=== PATIENT | female | born 1975 | race Two or more races ===

== ENCOUNTER 2020-05-06 10:55 | Outpatient (REF) | payer BC, SELFPAY ==
[2020-05-07 16:17] LABS: H Pylori Breath Test NOT DETECTED (NOT DETECTED)
== END 2020-05-06 10:56 | disposition home or self-care (01) ==
LOC: CF 10:55
PROVIDERS: PCP Internal Medicine; Visit Provider Physician Assistant
DX: R10.13 Epigastric pain (principal)
CPT/HCPCS: 83013

== ENCOUNTER 2021-08-08 08:48 | Outpatient (REF) | payer BC, SELFPAY ==
[2021-08-08 09:06] LABS: MANUAL DIFF FLAG NO
[2021-08-08 09:32] LABS: Basophils Percent Auto 0.5 % (0-2); Eosinophils Absolute Auto 0.1 X10*3/uL (0.0-0.4); Eosinophils Percent Auto 2.3 % (0-4); Hematocrit 43.5 % (37.0-47.0); Hemoglobin 14.4 g/dl (12.0-16.0); Imm Gran Abs Auto 0.02 X10*3/uL (0.00-0.03); Imm Gran Pct Auto 0.5 % (0.0-0.4); Lymphocytes Absolute Auto 1.2 X10*3/uL (1.2-4.9); Lymphocytes Percent Auto 29.7 % (20-40); Mean Corpuscular HGB Conc 33.1 g/dl (31.0-35.0); Mean Corpuscular Volume 87.5 fL (80.0-98.0); Mean Platelet Volume 9.6 fL (9.4-12.3); Monocytes Absolute Auto 0.4 X10*3/uL (0.1-1.2); Monocytes Percent Auto 10.7 % (2-11); Neutrophils Absolute Auto 2.2 x10*3/uL (2.0-8.3); Neutrophils Percent Auto 56.3 % (45-73); Platelet Count 208 X10*3/uL (160-400); Red Blood Count 4.97 X10*6/uL (4.20-5.50); Red Cell Distribution Width 12.6 % (11.0-16.0); White Blood Count 3.9 X10*3/uL (4.8-10.8)
[2021-08-08 10:06] LABS: Alanine Aminotransferase 31 U/L (0-31); Albumin Level 3.9 g/dL (3.5-5.0); Alkaline Phosphatase 89 U/L (39-117); Anion Gap 10 (12-20); Aspartate Amino Transferase 27 U/L (5-31); Bilirubin Total 0.9 mg/dL (0.0-1.0); Blood Urea Nitrogen 11 mg/dL (9-16); Calcium 9.8 mg/dL (8.4-10.2); Carbon Dioxide 27 mmol/L (22-29); Chloride 107 mmol/L (96-108); Cholesterol 178 mg/dL; Estimated Glomerular Filt Rate > 60; Glucose Fasting 103 mg/dL (60-99); HDL Cholesterol 48 mg/dL; LDL Cholesterol Calculated 118 mg/dl; Potassium 4.5 mmol/L (3.3-5.1); Sodium 139 mmol/L (135-145); Total Protein 7.2 g/dL (6.5-8.0); Triglycerides 61 mg/dL
[2021-08-08 10:15] LABS: Estimated Average Glucose 114 mg/dL; Hemoglobin A1C 137.3751 umol/L; Hemoglobin A1c % 5.6 %
[2021-08-08 10:27] LABS: Microalbum/Creatinine Ratio Ur 9.1 ug/mg cr
[2021-08-08 10:31] LABS: Thyroid Stimulating Hormone 0.81 uIU/mL (0.32-4.0)
== END 2021-08-08 08:49 | disposition home or self-care (01) ==
LOC: HO.LAB 08:48
PROVIDERS: PCP Internal Medicine; Visit Provider Internal Medicine
DX: Z00.00 Encounter for general adult medical examination without abnormal findings (principal); Z13.9 Encounter for screening, unspecified; Z13.0 Encounter for screening for diseases of the blood and blood-forming organs and certain disorders involving the immune mechanism; E11.69 Type 2 diabetes mellitus with other specified complication; E66.01 Morbid (severe) obesity due to excess calories
CPT/HCPCS: 36415; 80053; 80061; 82043; 83036; 84443; 85025

== ENCOUNTER → 2021-10-14 07:44 | Outpatient (REF) | payer BC, SELFPAY ==
--- NOTE | 2021-10-14 07:50 | CA_ITS ---
Transthoracic Echocardiogram Amended Patient (Last, First, Middle): Rocio Wilson E Gender: Female Date of : 1975 Age: 46 Procedure Date: 10/14/2021 Procedure Type: Transthoracic Echocardiogram Location: OP Height: 154.94 cm Weight: 85.73 kg BSA: 1.84 m2 Heart Rate: 79 bpm BP: 122 / 70 mmHg Brand Lead: ETHEL Referring MD: Arnaldo Merlos MD Commercial Stripper: Arnaldo Merlos MD Symptoms: PVCS Study Quality: Adequate ECG Rhythm: Sinus Conclusions: - 1. Normal LV systolic and diastolic function 2. Small membranous VSD 3. Normal cardiac valvular Doppler 4. Normal RV systolic pressure 5. No gross pericardial effusion Findings Left Ventricle Normal left ventricular size, thickness, and systolic function. The visually estimated ejection fraction is between 60-65%. Diastolic function is normal for age. There is evidence of a small membranous ventricular septal defect with left to right shunting. Peak GLS is -19.9%, within normal limits Right Ventricle Normal right ventricular cavity size and systolic function. Atria Both atria are normal in size. There is lipomatous hypertrophy of the interatrial septum. There is no evidence of interatrial shunt. Aortic Valve Normal aortic valve structure and function. There is no aortic valve stenosis. There is no aortic valve regurgitation. Mitral Valve Normal mitral valve structure and function. There is trace mitral valve regurgitation. There is no mitral valve stenosis. Pulmonic Valve The pulmonic valve is likely normal. There is trace to mild pulmonic valve regurgitation. Tricuspid Valve Normal tricuspid valve structure. There is mild tricuspid valve regurgitation. The right ventricular systolic pressure is normal. The right ventricular systolic pressure is 24 mmHg. Normal right atrial pressure. There is no evidence of pulmonary hypertension. Great Vessels All visible segments of the aorta are normal in size. The pulmonary artery was not well visualized. Venous The inferior vena cava is normal in size and collapses greater than 50% with inspiration. Pericardium/Pleural There is no evidence of pericardial effusion. Prior Study Comparison No significant change compared to prior study dated: 10/11/2019. RV systolic pressure are normal on this study Measurements 2D Linear Measurements IVSd: 0.89 0.6-0.9/0.6-1.0 cm LVIDd: 4.44 3.9-5.3/4.2-5.9 cm LVIDd Index: 2.41 2.4-3.2/2.2-3.1 cm/m2 LVIDs: 3.08 2.0-3.6 cm LVPWd: 0.66 0.7-1.1 cm Ao Root: 2.70 2.1-3.5 cm LA Diam: 3.90 2.7-3.8/3.0-4.0 cm LAIDs Index: 2.12 1.5-2.3 cm/m2 LV Mass: 132.49 67-162/88-224 g LV Mass Index: 72.00 43-95/49-115 g/m2 LVOT Diam: 2.10 3.0+(-)1.3 cm 2D Volumes LA Vol: 30.80 2D Systolic Function EF 4C: 57.40 >55% EF 2C: 62.30 >55% EF BiP: 60.90 >55% Mitral Valve MV Pk E: 0.91 MV PK A: 0.64 MV Decel Time: 146.00 E/A: 1.40 E'Lateral: 10.80 E'Medial: 11.10 E/E' Med: 8.20 E/E' Lat: 8.40 PHT: 43.00 MVA PHT: 5.12 Decel Cherry: 6.20 Aortic Valve AoV Pk Fox: 1.17 AoV Mn Fox: 0.84 AoV VTI: 0.24 AoV Pk Grad: 5.00 Aov Mn Grad: 3.00 ESTRELLITA Cont.VTI: 2.83 LVOT LVOT Pk Fox: 0.88 LVOT Mn Fox: 0.65 LVOT VTI: 0.20 LVOT Pk Grad: 3.00 LVOT Mn Grad: 2.00 LVOT Diam: 2.10 LVOT Area: 3.46 Diastolic Function MV Pk E: 0.91 MV Pk A: 0.64 E/A: 1.40 E'Medial: 11.10 E/E' Med: 8.20 E' Laterial: 10.80 E/E' Lat: 8.40 Right Ventricle TAPSE (mm): 15.30 TVS' Fox: 10.40 Tricuspid Valve TR Pk Fox: 2.29 TR Pk Grad: 21.00 RA Press: 3.00 RVSP: 24.00 Great Vessels Aorta Ao Root-2D: 2.70 2.0-3.7 cm Sinus of Valsalva: 2.70 2.0-3.5 cm Ao Asc: 3.10 2.1-3.4 cm Ao Arch: 2.60 Ao Desc: 2.90 Pulmonary Veins Pulm Vein S/D 1.70 Pulmonary Valve PV Pk Fox: 1.21 Peak PV Grad: 6.00 Updated in Other Vendor System with Status of Final Arnaldo Merlos MD electronically signed on 10/14/2021 10:37:36 AM with status of Final
== END ==
LOC: HO.CARD 07:44
PROVIDERS: PCP Internal Medicine; Visit Provider Internal Medicine Cardiovascular Disease
DX: Q21.0 Ventricular septal defect (principal)
CPT/HCPCS: 93306; 93356

== ENCOUNTER → 2021-11-03 08:48 | Outpatient (BNVA) | payer BC, SELFPAY | PROVIDERS: PCP Internal Medicine; Referring Provider Internal Medicine; Visit Provider Internal Medicine Cardiovascular Disease | DX: Q21.0 Ventricular septal defect (principal) | CPT/HCPCS: 93005 ==

== ENCOUNTER 2022-03-24 08:27 | Outpatient (REF) | payer BC, SELFPAY ==
--- NOTE | ~2022-03-24 | MM_ITS ---
EXAMINATION: MM SCREENING DIGITAL BREAST TOMOSYNTHESIS, BILATERAL CLINICAL INFORMATION: Screening. Asymptomatic. The lifetime risk of breast cancer based on the Tyrer-Cuzick Model is 8%. COMPARISON: Mammography: 12/25/2019, 12/18/2018, 11/02/2017 TECHNIQUE: Digital breast tomosynthesis is performed in both the craniocaudal and mediolateral oblique views along with computer-aided detection (CAD). Synthesized 2D images are generated from the tomosynthesis. FINDINGS: The breasts are heterogeneously dense, which may obscure small masses (ACR BI-RADS breast composition Category c). There are scattered bilateral asymmetries similar to prior studies. No developing density or architectural abnormality. Parenchymal pattern is similar to prior exam. Right breast has biopsy clip marker posterior 12:30 o'clock. There are scattered bilateral punctate and small coarse calcifications again seen. No significant changes. MM/MM tomosynthesis screening BI IMPRESSION: No mammographic evidence of malignancy. ASSESSMENT: BI-RADS 2: Benign RECOMMENDATION: Routine annual mammography screening. This patient's information was entered into a reminder system with a target due date for their next mammogram.
== END 2022-03-24 08:28 | disposition home or self-care (01) ==
LOC: HO.MAMMO 08:27
PROVIDERS: PCP Internal Medicine; Visit Provider Obstetrics & Gynecology
DX: Z12.31 Encounter for screening mammogram for malignant neoplasm of breast (principal)
CPT/HCPCS: 77063; 77067

== ENCOUNTER 2022-06-30 11:44 | Outpatient (REF) | payer BC, SELFPAY ==
--- NOTE | ~2022-06-30 | XR_ITS ---
EXAMINATION: XR CHEST CLINICAL INFORMATION: Cough. COMPARISON: None available. TECHNIQUE: 2 views of the chest were obtained. FINDINGS: The lungs are well-expanded and clear. The heart size and pulmonary vascularity is normal. No there is mild spondylosis dorsal spine. No aggressive lytic or sclerotic process seen. XR/XR chest 2V IMPRESSION: Unremarkable chest exam.
== END 2022-06-30 11:45 | disposition home or self-care (01) ==
LOC: HO.HMGCX 11:44
PROVIDERS: PCP Internal Medicine; Visit Provider Nurse Practitioner Family
DX: R05.9 Cough, unspecified (principal)
CPT/HCPCS: 71046

== ENCOUNTER 2023-01-24 11:07 | Outpatient (AMB) | payer BC, SELFPAY ==
[2023-01-24 12:28] VITALS: BP 130/80; PULSE 81; TEMP 36.6; O2SAT 97; BMI 37.8
--- NOTE | 2023-01-24 12:28 | AM.OFFWIN_ITS ---
Intake Vital Signs 01/24/23 12:28 Height 5 ft 1 in Weight 90.718 kg BMI 37.8 BP 130/80 Blood Pressure Location Lt brachial Position Sitting Pulse 81 Pulse Source Pulse Oximeter Temp 97.8 F Temp Source Temporal Artery Scan Pulse Oximetry (%) 97 Intake Visit Reasons: Ep, Sinus congestion ([phone]) Intake Note: pt is here for c/o sinus congestion Patient Tobacco Use Status: Former Tobacco user Allergies No Known Allergies Allergy (Verified 01/24/23 12:29) HPI Ep, Sinus congestion ([phone]) HPI Details Patient presents with 9 days of worsening congestion sinus pain headache. She has been taking cgfy-vzn-dcatifz cold remedies hoping he would self limit however she is feeling worse. No measured fever, mild cough, sore throat mild. Increasing sinus pressure and pain and ear congestion. Denies vision changes or balance/coordination issues. FORMERLY [facility] Medical History Epigastric pain Surgical History History of esophagogastroduodenoscopy (EGD) History of partial hysterectomy Hx of colonoscopy Family History Father HTN (hypertension) Epileptic Social History Housing: Apartment Alcohol intake: current Alcohol intake frequency: a few times a month Alcohol type: wine Patient Tobacco Use Status: Former Tobacco user e-Cigarette/Vaping Use: Never Used Second Hand Smoke Exposure: No service: No Current occupational status: employed Cognitive needs: No Hearing needs: No Vision needs: Yes Review of Systems Const Reports as per HPI and Reports no additional complaints Eyes Reports no additional complaints ENT Reports no additional complaints and Reports as per HPI Card Reports as per HPI and Reports no additional complaints Resp Reports as per HPI and Reports no additional complaints Neuro Reports no additional complaints and Reports as per HPI Physical Exam Vital Signs: Last Vital Signs Temp 97.8 F 01/24/23 12:28 Pulse 81 01/24/23 12:28 BP 130/80 01/24/23 12:28 Pulse Ox 97 01/24/23 12:28 BMI result Body Mass Index 37.8 Const General: cooperative, comfortable and no acute distress Orientation/consciousness: patient oriented x3 HEENT Ears: external ears normal, TM's normal bilaterally and EAC's normal General nose exam: Abnormal external nose present (General edema), Abnormal mucous membranes and turbinates present erythematous and Nasal discharge present mucoid Neck Neck: Yes no lymphadenopathy Resp Effort & Inspection: normal respiratory effort Auscultation: clear to auscultation bilaterally Cardio Rate: regular rate Rhythm: regular rhythm Heart sounds: S1 normal heart sound present and S2 normal heart sound present Neuro General: patient oriented x3 Extrem General: Yes no pedal edema Assessment & Plan Assessment & Plan (1) Sinusitis: Code(s): J32.9 - Chronic sinusitis, unspecified Qualifiers: Sinusitis location: frontal Chronicity: acute Recurrence: non- recurrent Qualified Code(s): J01.10 - Acute frontal sinusitis, unspecified Plan: Will treat patient with a course of Augmentin. She can continue OTC symptomatic treatment. Return to clinic if symptoms do not improve over the next 3-5 days. Medications: New amoxicillin-pot clavulanate 875-125 mg 1 tab PO Q12H 20 tabs 0RF 10 days Coding Level of Care Code Est Pt Level 3 (89806) Diagnoses Acute non-recurrent frontal sinusitis J01.10 Sinusitis location: frontal Chronicity: acute Recurrence: non-recurrent
== END 2023-01-24 13:05 | disposition home or self-care (01) ==
PROVIDERS: PCP Internal Medicine; Visit Provider Physician Assistant
DX: J01.10 Acute frontal sinusitis, unspecified (principal)
CPT/HCPCS: 99213

== ENCOUNTER 2023-03-29 07:56 | Outpatient (REF) | payer BC, SELFPAY ==
--- NOTE | ~2023-03-29 | MM_ITS ---
EXAMINATION: MM SCREENING DIGITAL BREAST TOMOSYNTHESIS, BILATERAL CLINICAL INFORMATION: Screening. Asymptomatic. COMPARISON: Mammography: This study is compared with prior exams dating back to 2018. TECHNIQUE: Digital breast tomosynthesis is performed in both the craniocaudal and mediolateral oblique views along with computer-aided detection (CAD). Synthesized 2D images are generated from the tomosynthesis. FINDINGS: There are scattered areas of fibroglandular density (ACR BI-RADS breast composition Category b). There are no significant masses, abnormal calcifications, or other abnormalities. There is a tissue marker in the deep third of the upper inner quadrant of the right breast from prior benign percutaneous biopsy. MM/MM tomosynthesis screening BI IMPRESSION: No mammographic evidence of malignancy. ASSESSMENT: BI-RADS BI-RADS 2 - Benign Findings RECOMMENDATION: Routine annual mammography screening. 1 year F/U This examination should not preclude the clinical evaluation of a suspicious palpable abnormality. This patient's information was entered into a reminder system with a target due date for their next mammogram.
== END 2023-03-29 07:57 | disposition home or self-care (01) ==
LOC: HO.MAMMO 07:56
PROVIDERS: PCP Internal Medicine; Visit Provider Internal Medicine
DX: Z12.31 Encounter for screening mammogram for malignant neoplasm of breast (principal)
CPT/HCPCS: 77063; 77067

== ENCOUNTER → 2023-03-29 08:00 | Outpatient (BNV) | payer BC, SELFPAY | PROVIDERS: PCP Internal Medicine; Visit Provider Radiology Diagnostic Radiology | DX: Z12.31 Encounter for screening mammogram for malignant neoplasm of breast (principal) | CPT/HCPCS: 77063; 77067 ==

== ENCOUNTER 2023-05-12 09:30 | Outpatient (AMB) | payer BC, SELFPAY ==
[2023-05-12 09:32] VITALS: BP 122/84; BMI 38.7
--- NOTE | 2023-05-12 09:32 | A.OFFPC_ITS ---
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 policy Accompanied by: Self / Same As Patient Allergies No Known Allergies Allergy (Verified 05/12/23 09:32) Medication List - Last Reconciled 05/12/23 by Jeffrey Denton MD albuterol sulfate 90 mcg/actuation (ProAir HFA) 2 puffs PO Q6H PRN conjugated estrogens (Premarin) 1.25 mg PO DAILY fluticasone propion-salmeterol 115-21 mcg/actuation (Advair HFA) 2 puffs inhalation BID 30 days metformin ER 500 mg PO BID omeprazole 20 mg PO DAILY Tobacco use date assessed: 05/12/23 Dental Screening Dental Screen Date: 05/12/23 Did you have a dental visit in the last 12 months?: Yes Did you have a dental problem in the last 6 months where you did not have access to dental care?: No Was dental information given to patient?: Patient has dentist HPI Sinus infection/Covid negative HPI Details facial pressure and congestion for 3 days PFSH Medical History Epigastric pain Surgical History History of esophagogastroduodenoscopy (EGD) History of partial hysterectomy Hx of colonoscopy Family History Father HTN (hypertension) Epileptic Social History Housing: Apartment Alcohol intake: current Alcohol intake frequency: a few times a month Alcohol type: wine Patient Tobacco Use Status: Former Tobacco user e-Cigarette/Vaping Use: Never Used Second Hand Smoke Exposure: No service: No Current occupational status: employed Cognitive needs: No Hearing needs: No Vision needs: Yes Questionnaire PHQ-9 Over the last 2 weeks, how often have you been bothered by any of the following problems? 1. Little interest or pleasure in doing things: not at all 2. Feeling down, depressed, or hopeless: not at all 3. Trouble falling or staying asleep, or sleeping too much: not at all 4. Feeling tired or having little energy: not at all 5. Poor appetite or overeating: not at all 6. Feeling bad about yourself - or that you are a failure or have let yourself or your family down: not at all 7. Trouble concentrating on things, such as reading the newspaper or watching television: not at all 8. Moving or speaking so slowly that other people could have noticed. Or the opposite - being so fidgety or restless that you have been moving around a lot more than usual: not at all 9. Thoughts that you would be better off or of hurting yourself in some way: not at all Total score: 0 Depression Screening Interpretation: Negative Depression Screening Done: Yes Source: Developed by Drs. Manuel Williamson, Ila Holly, Kulwinder Crisostomo and colleagues, with an educational lakesha from [employer]. Thrive Questionnaire Date Thrive assessed: 05/12/23 I am a: Patient What is your living situation today?: I have a steady place to live Within the past 12 months, did the food you bought not last and you didn't have the money to get more?: Never true Within the past 12 months, did you worry whether your food would run out before you got money to buy more?: Never true Do you have trouble paying for medicines?: No Do you have trouble getting transportation to medical appointments?: No Do you have trouble paying your heating and electricity bill?: No Do you have trouble taking care of your child, family member or friend?: No Do you have trouble with day-to-day activities such as bathing, preparing meals, shopping, managing finances, etc.?: No Are you currently unemployed and looking for a job?: No Are you interested in more education?: No Please select the resources that you would like help with: None THRIVE Score: 0 AUDIT C Alcohol Use Questionnaire (AUDIT-C) 1. How often do you have a drink containing alcohol?: Never Total Score: 0 Score Reviewed/Action Taken: Yes ARIEL-7 AMB Questionnaire ARIEL-7 Date ARIEL - 7 assessed: 05/12/23 Feeling nervous, anxious, or on edge: 0 = Not at all Not being able to stop or control worryin = Not at all Worrying too much about different things: 0 = Not at all Trouble relaxin = Not at all Being so restless that it is hard to sit still: 0 = Not at all Becoming easily annoyed or irritable: 0 = Not at all Feeling afraid as if something awful might happen: 0 = Not at all Total ARIEL-7 score (0-4 normal; 5-9 mild; 10-14 moderate; 15-21 severe): 0 Source: Developed by Drs. Manuel Williamson, Ila Holly, Kulwinder Crisostomo and colleagues, with an educational lakesha from [employer]. Review of Systems Const Denies chills, Denies headache(s) and Denies weight loss ENT Denies headache(s) Card Denies chest pain, Denies syncope, Denies irregular heart rhythm and Denies dyspnea Resp Denies dyspnea GI Denies abdominal pain, Denies change in stool character, Denies nausea and Denie s vomiting Musc Denies deformity and Denies joint swelling Neuro Denies syncope and Denies headache(s) Physical exam (Primary Care) Vital Signs: Last Vital Signs BP 122/84 05/12/23 09:32 Oxygen Delivery Method Room Air 05/12/23 09:32 BMI result Body Mass Index 38.7 Tobacco/Smoking Status: Tobacco use Status Tobacco use date assessed 05/12/23 05/12/23 09:38 Patient Tobacco Use Status Former Tobacco user 05/12/23 09:38 e-Cigarette/Vaping Use Never Used 05/12/23 09:38 PHQ-9: PHQ-9 Score PHQ-9: Total score 0 05/12/23 09:45 Depression Screening Interpretation: Negative Thrive Assessment: Date of Thrive Assessment Date Thrive assessed 05/12/23 05/12/23 09:38 Assessment and Plan Assessment & Plan (1) Sinusitis: Code(s): J32.9 - Chronic sinusitis, unspecified Plan: rx sent Medications: New methylprednisolone (Medrol (Miguel)) PO PER PKG DIR 21 ea 0RF amoxicillin-pot clavulanate 500-125 mg (Augmentin) 1 tab PO BID 10 tabs 0RF Coding Level of Care Code Est Pt Level 3 (45373) Diagnoses Sinusitis J32.9 Additional Codes PHQ-9 - 81307 - PHQ-9 Billing: ([id number])
== END 2023-05-12 09:48 | disposition home or self-care (01) ==
PROVIDERS: PCP Internal Medicine; Visit Provider Internal Medicine
DX: J32.9 Chronic sinusitis, unspecified (principal)
CPT/HCPCS: 99213

== ENCOUNTER 2023-08-15 08:48 | Outpatient (AMB) | payer BC, SELFPAY ==
[2023-08-15 08:54] VITALS: BP 130/84; BMI 39.7
--- NOTE | 2023-08-15 08:54 | A.OFFPC_ITS ---
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: Not Required per policy Accompanied by: Self / Same As Patient Allergies No Known Allergies Allergy (Verified 08/15/23 08:55) Medication List - Last Reconciled 08/15/23 by Jeffrey Denton MD albuterol sulfate 90 mcg/actuation (ProAir HFA) 2 puffs PO Q6H PRN amoxicillin-pot clavulanate 500-125 mg (Augmentin) 1 tab PO BID conjugated estrogens (Premarin) 1.25 mg PO DAILY fluticasone propion-salmeterol 115-21 mcg/actuation (Advair HFA) 2 puffs inhalation BID 30 days metformin ER 500 mg PO BID methylprednisolone (Medrol (Miguel)) PO PER PKG DIR omeprazole 20 mg PO DAILY Tobacco use date assessed: 05/12/23 Dental Screening Dental Screen Date: 05/12/23 HPI Annual Exam HPI Details DM obesity and asthma; sees endo; doing well and compliant [facility] Medical History Epigastric pain Surgical History History of esophagogastroduodenoscopy (EGD) Hx of colonoscopy History of partial hysterectomy Family History Father HTN (hypertension) Epileptic Social History Housing: Apartment Alcohol intake: current Alcohol intake frequency: a few times a month Alcohol type: wine Patient Tobacco Use Status: Former Tobacco user e-Cigarette/Vaping Use: Never Used Second Hand Smoke Exposure: No service: No Current occupational status: employed Cognitive needs: No Hearing needs: No Vision needs: Yes Questionnaire Thrive Questionnaire Date Thrive assessed: 05/12/23 ARIEL-7 AMB Questionnaire ARIEL-7 Date ARIEL - 7 assessed: 05/12/23 Source: Developed by Drs. Manuel Williamson, Ila Holly, Kulwinder Crisostomo and colleagues, with an educational lakesha from [employer]. Review of Systems Const Denies chills, Denies fatigue, Denies headache(s) and Denies weight loss Eyes Denies change in vision, Denies diplopia and Denies eye pain ENT Denies vertigo, Denies dizziness, Denies headache(s) and Denies nasal discharge Card Denies chest pain, Denies rapid heart rate and Denies dyspnea on exertion Resp Denies chest congestion, Denies cough, Denies pain with cough and Denies dyspnea on exertion GI Denies abdominal pain, Denies hematochezia and Denies change in bowel habits Musc Denies myalgias, Denies arthralgias and Denies joint swelling Skin/Breast Denies lesions and Denies unusual bruising Neuro Denies vertigo, Denies dizziness, Denies headache(s) and Denies focal weakness Endo Denies fatigue Physical exam (Primary Care) Vital Signs: Last Vital Signs BP 130/84 08/15/23 08:54 Oxygen Delivery Method Room Air 08/15/23 08:54 BMI result Body Mass Index 39.7 Tobacco/Smoking Status: Tobacco use Status Tobacco use date assessed 05/12/23 08/15/23 08:55 Patient Tobacco Use Status Former Tobacco user 08/15/23 08:55 e-Cigarette/Vaping Use Never Used 08/15/23 08:55 Thrive Assessment: Date of Thrive Assessment Date Thrive assessed 05/12/23 08/15/23 08:55 Const General: cooperative, healthy appearing and no acute distress Orientation/consciousness: oriented to person, oriented to place and oriented to time HENWA Head: Yes normal to inspection, Yes normocephalic and Yes atraumatic Mouth: Normal oral and palatal mucosa present and tongue normal Throat: Yes posterior oropharynx normal and Yes uvula midline Eyes General: appearance normal, both eyes and all related structures Neck Neck: Yes normal visual inspection, Yes full ROM and Yes no lymphadenopathy Thyroid: Thyroid normal Carotids: normal carotid upstroke Chest Chest palpation & inspection: normal inspection of the chest Resp Effort & Inspection: normal respiratory effort and able to speak in complete sentences Auscultation: clear to auscultation bilaterally Cardio Jugular venous distension: no JVD Palpation: normal PMI Rate: regular rate Rhythm: regular rhythm Heart sounds: S1 normal heart sound present and S2 normal heart sound present GI Inspection: Yes normal to inspection Palpation (GI): Soft to palpation and No hepatosplenomegaly present Auscultation: normal bowel sounds General: Yes no CVA tenderness Back/Spine/Pelvis Back: no CVA tenderness Skin General skin exam: no rashes or lesions noted Neuro General: oriented to person, oriented to place and oriented to time Extrem General: Yes normal to inspection and Yes full ROM Assessment and Plan Assessment & Plan (1) Physical exam: Code(s): Z00.00 - Encounter for general adult medical examination without abnormal findings Plan: stable; do labs (2) Obesity: Code(s): E66.9 - Obesity, unspecified Plan: diet and exercise (3) Type 2 diabetes mellitus with obesity: Code(s): E11.69 - Type 2 diabetes mellitus with other specified complication; E66.9 - Obesity, unspecified Plan: stable; do labs (4) Asthma: Code(s): J45.909 - Unspecified asthma, uncomplicated Orders: Orders Lipid Panel Today Z13.220 - Encounter for screening for lipoid disorders Thyroid Stimulating Hormone Today Z13.29 - Encounter for screening for other suspected endocrine disorder Comprehensive [place]. Panel Fast Today Z13.9 - Encounter for screening, unspecified Complete Blood Count Auto Diff Today Z13.0 - Encounter for screening for diseases of the blood and blood-forming organs and certain disorders involving the immune mechanism Hemoglobin A1c Today R73.9 - Hyperglycemia, unspecified Microalbumin, Random (w Creat) Today E11.69 - Type 2 diabetes mellitus with other specified complication, E66.01 - Morbid (severe) obesity due to excess calories Medications: Refilled albuterol sulfate 90 mcg/actuation (ProAir HFA) 2 puffs PO Q6H PRN 18 grams 8RF bronchospasm Coding Level of Care Code Est Pt Prev Care 40-64y(09191) Diagnoses Physical exam Z00.00 Obesity E66.9 Type 2 diabetes mellitus with obesity E11.69; E66.9 Asthma J45.909
== END 2023-08-15 09:10 | disposition home or self-care (01) ==
PROVIDERS: PCP Internal Medicine; Visit Provider Internal Medicine
DX: Z00.00 Encounter for general adult medical examination without abnormal findings (principal); E11.9 Type 2 diabetes mellitus without complications; J45.909 Unspecified asthma, uncomplicated
CPT/HCPCS: 99396

== ENCOUNTER 2024-02-16 13:59 | Outpatient (AMB) | payer BC, SELFPAY ==
[2024-02-16 14:09] VITALS: BP 134/88; BMI 39.3
--- NOTE | 2024-02-16 14:09 | MHC.PC.OV ---
Vital Signs 02/16/24 14:09 Height 5 ft 1 in Weight 208 lb BMI 39.3 BP 134/88 Blood Pressure Location Lt brachial Position Sitting Pulse Source Pulse Oximeter Oxygen Delivery Method Room Air Intake Visit Reasons: Fall Analytical Lead Required: No Accompanied by: Self / Same As Patient Allergies No Known Allergies Allergy (Verified 02/16/24 14:10) Medication List - Last Reconciled 02/17/24 by Jeffrey Denton MD albuterol sulfate 90 mcg/actuation (ProAir HFA) 2 puffs PO Q6H PRN conjugated estrogens (Premarin) 1.25 mg PO DAILY fluticasone propion-salmeterol 115-21 mcg/actuation (Advair HFA) 2 puffs inhalation BID 30 days metformin ER 500 mg PO BID naproxen (Naprosyn) 500 mg PO BID PRN omeprazole 20 mg PO DAILY Tobacco use date assessed: 05/12/23 Dental Screening Dental Screen Date: 05/12/23 HPI Fall HPI Details fell a week ago and injured right knee; pain and swelling PFSH Medical History Epigastric pain Surgical History History of esophagogastroduodenoscopy (EGD) Hx of colonoscopy History of partial hysterectomy Family History Father HTN (hypertension) Epileptic Social History Housing: Apartment Alcohol intake: current Alcohol intake frequency: a few times a month Alcohol type: wine Patient Tobacco Use Status: Former Tobacco user Tobacco use type: Cigarette e-Cigarette/Vaping Use: Never Used Second Hand Smoke Exposure: No service: No Current occupational status: employed Cognitive needs: No Hearing needs: No Vision needs: Yes Questionnaire Thrive Questionnaire Date Thrive assessed: 05/12/23 ARIEL-7 AMB Questionnaire ARIEL-7 Date ARIEL - 7 assessed: 05/12/23 Source: Developed by Drs. Manuel Williamson, Ila Holly, Kulwinder Crisostmoo and colleagues, with an educational lakesha from [employer]. Review of Systems Const Denies chills, Denies headache(s) and Denies weight loss ENT Denies headache(s) Card Denies chest pain, Denies syncope, Denies irregular heart rhythm and Denies dyspnea Resp Denies chest congestion, Denies cough and Denies dyspnea GI Denies abdominal pain, Denies change in stool character, Denies nausea and Denies vomiting Musc Denies deformity and Denies joint swelling Neuro Denies syncope and Denies headache(s) Physical exam (Primary Care) Vital Signs: Last Vital Signs BP 134/88 02/16/24 14:09 Oxygen Delivery Method Room Air 02/16/24 14:09 BMI result Body Mass Index 39.3 Tobacco/Smoking Status: Tobacco use Status Tobacco use date assessed 05/12/23 02/16/24 14:14 Patient Tobacco Use Status Former Tobacco user 02/16/24 14:14 Tobacco use type Cigarette 02/16/24 14:14 e-Cigarette/Vaping Use Never Used 02/16/24 14:14 Thrive Assessment: Date of Thrive Assessment Date Thrive assessed 05/12/23 02/16/24 14:14 Const General: cooperative, comfortable, no acute distress and alert Neck Neck: Yes no lymphadenopathy Thyroid: Thyroid normal Resp Effort & Inspection: normal respiratory effort Auscultation: clear to auscultation bilaterally Percussion: percussion normal Cardio Jugular venous distension: no JVD Palpation: normal PMI Rate: regular rate Rhythm: regular rhythm Heart sounds: S1 normal heart sound present and S2 normal heart sound present GI Inspection: Yes normal to inspection Palpation (GI): No hepatosplenomegaly present Skin General skin exam: no rashes or lesions noted Extrem General: Yes no clubbing, cyanosis or edema Office Procedures Flu Questionnaire Does the patient have a severe egg allergy?: No Does the patient have severe life threatening allergies?: No Does the patient have a fever or illness today?: No Has the patient ever had Guillain-Allen Syndrome?: No Has the patient ever had any past reaction to a flu shot?: No Immunizations Fluarix Triv [id number] (PF) 45 mcg (15 mcg x 3)/0.5 mL IM syringe Performing Provider: Jeffrey Denton MD [place] [facility] [place] [facility] [place] [facility] Administered by: Azul Eduardo LPN on 02/16/24 14:25 Dose Route Admin Location Dispensed Lot Number Expiration Date NDC Pail Tester 0.5 mL IM Left Deltoid 0.5 mL [id number] 10/08/24 06017-971-74 [employer] VIS Given Date VIS Provided VIS Publication Date 02/16/24 Single Vaccine 20 Eligibility Eligibility Date Funding Source Not [facility] Eligible 02/16/24 Private Coding Level of Care Code Est Pt Level 3 (68393) Diagnoses Knee pain, right M25.561 Assessment & Plan Assessment & Plan (1) Knee pain, right: Code(s): M25.561 - Pain in right knee Plan: xr ice and rx Orders: Orders XR knee RT 2V 02/16/24 M25.569 - Pain in unspecified knee Influenza [id number] Immunization 02/16/24 Z23 - Encounter for immunization Medications: New naproxen (Naprosyn) 500 mg PO BID PRN 60 tabs 0RF pain
== END 2024-02-16 14:30 | disposition home or self-care (01) ==
LOC: HO.HMCH 13:59
PROVIDERS: PCP Internal Medicine; Visit Provider Internal Medicine
DX: M25.561 Pain in right knee (principal)

== ENCOUNTER 2024-02-16 13:59 | Outpatient (REF) | payer BC, SELFPAY | END 2024-02-16 14:00 | disposition home or self-care (01) | LOC: HO.XRAY 13:59 | PROVIDERS: PCP Internal Medicine; Visit Provider Internal Medicine | DX: Z23 Encounter for immunization (principal); M25.561 Pain in right knee | CPT/HCPCS: 73560; 90471; 90656 ==

== ENCOUNTER 2024-04-19 10:57 | Outpatient (AMB) | payer BC, SELFPAY ==
[2024-04-19 11:04] VITALS: BP 134/70; BMI 38.4
--- NOTE | 2024-04-19 11:04 | A.OFFPC_ITS ---
Vital Signs 04/19/24 11:04 Height 5 ft 1 in Weight 203 lb BMI 38.4 BP 134/70 Blood Pressure Location Lt brachial Position Sitting Intake Visit Reasons: Sinus and cold Allergies No Known Allergies Allergy (Verified 04/19/24 11:04) Tobacco use date assessed: 04/19/24 Dental Screening Dental Screen Date: 04/19/24 Did you have a dental visit in the last 12 months?: Yes Did you have a dental problem in the last 6 months where you did not have access to dental care?: No Was dental information given to patient?: Patient has dentist HPI Sinus and cold HPI Details productive cough and congestion for week PFS Medical History Epigastric pain Surgical History History of esophagogastroduodenoscopy (EGD) Hx of colonoscopy History of partial hysterectomy Family History (Updated 04/19/24 @ 11:05 by Savanah Joyce CMA) Father HTN (hypertension) Epileptic Social History Housing: Apartment Alcohol intake: current Alcohol intake frequency: a few times a month Alcohol type: wine Patient Tobacco Use Status: Former Tobacco user Tobacco use type: Cigarette e-Cigarette/Vaping Use: Never Used Second Hand Smoke Exposure: No service: No Current occupational status: employed Cognitive needs: No Hearing needs: No Vision needs: Yes Questionnaire Thrive Questionnaire Date Thrive assessed: 04/19/24 I am a: Patient What is your living situation today?: I have a steady place to live Within the past 12 months, did the food you bought not last and you didn't have the money to get more?: Never true Within the past 12 months, did you worry whether your food would run out before you got money to buy more?: Never true Do you have trouble paying for medicines?: No Do you have trouble getting transportation to medical appointments?: No Do you have trouble paying your heating and electricity bill?: No Do you have trouble taking care of your child, family member or friend?: No Do you have trouble with day-to-day activities such as bathing, preparing meals, shopping, managing finances, etc.?: No Are you currently unemployed and looking for a job?: No Are you interested in more education?: No Currently or been in a relationship where the following occur: No concerns reported THRIVE Score: 0 ARIEL-7 AMB Questionnaire AIREL-7 Date ARIEL - 7 assessed: 05/12/23 Source: Developed by Drs. Manuel Williamson, Ila Holly, Kulwinder Crisostomo and colleagues, with an educational lakesha from [employer]. Review of Systems Const Denies chills, Denies headache(s) and Denies weight loss ENT Denies headache(s) Card Denies chest pain, Denies syncope, Denies irregular heart rhythm and Denies dyspnea Resp Denies dyspnea GI Denies abdominal pain, Denies change in stool character, Denies nausea and Denies vomiting Musc Denies deformity and Denies joint swelling Neuro Denies syncope and Denies headache(s) Physical exam (Primary Care) Vital Signs: Last Vital Signs BP 134/70 04/19/24 11:04 BMI result Body Mass Index 38.4 Tobacco/Smoking Status: Tobacco use Status Tobacco use date assessed 04/19/24 04/19/24 11:09 Patient Tobacco Use Status Former Tobacco user 04/19/24 11:09 Tobacco use type Cigarette 04/19/24 11:09 e-Cigarette/Vaping Use Never Used 04/19/24 11:09 Thrive Assessment: Date of Thrive Assessment Date Thrive assessed 04/19/24 04/19/24 11:09 Currently or been in a relationship where the following occur: No concerns reported Const General: cooperative, comfortable, no acute distress and alert Neck Neck: Yes no lymphadenopathy Thyroid: Thyroid normal Resp Effort & Inspection: normal respiratory effort Auscultation: clear to auscultation bilaterally Percussion: percussion normal Cardio Jugular venous distension: no JVD Palpation: normal PMI Rate: regular rate Rhythm: regular rhythm Heart sounds: S1 normal heart sound present and S2 normal heart sound present GI Inspection: Yes normal to inspection Palpation (GI): No hepatosplenomegaly present Skin General skin exam: no rashes or lesions noted Extrem General: Yes no clubbing, cyanosis or edema Coding Level of Care Code Est Pt Level 3 (76034) Diagnoses Asthma J45.909 Assessment & Plan Assessment & Plan (1) Asthma: Code(s): J45.909 - Unspecified asthma, uncomplicated Category: Medical Plan: rx sent Medications: New methylprednisolone (Medrol (Miguel)) PO PER PKG DIR 21 ea 0RF azithromycin take 500 mg today (day 1), then 250 mg for 4 days (days 2-5) PO 6 tabs 0RF
== END 2024-04-19 11:32 | disposition home or self-care (01) ==
PROVIDERS: PCP Internal Medicine; Visit Provider Internal Medicine
DX: J45.909 Unspecified asthma, uncomplicated (principal)

== ENCOUNTER → 2024-04-19 10:57 | Outpatient (BNVA) | payer BC, SELFPAY | PROVIDERS: PCP Internal Medicine; Visit Provider Internal Medicine ==

== ENCOUNTER 2024-04-25 09:13 | Outpatient (AMB) | payer BC, SELFPAY ==
--- NOTE | 2024-04-25 09:31 | AM.OFFWIN_ITS ---
Intake Vital Signs 04/25/24 10:04 Height 5 ft 1 in Weight 206 lb BMI 38.9 BP 130/94 H Blood Pressure Location Lt brachial Position Sitting Pulse 90 Pulse Source Palpation Intake Visit Reasons: EP ? ear infection, ? sinus infection Intake Note: Pt is here today for a walk in visit. Pt c/o bilateral ear pain, sinus pain and pressure since last week.Pt states that she finished ZPak and Prednisone and she is still not better. Patient Tobacco Use Status: Former Tobacco user Allergies No Known Allergies Allergy (Verified 04/25/24 10:09) Do you need a note to return to daycare/school/sports/work: No HPI HPI Comments History of Present Illness Details History - The patient is a 49-year-old female pr esenting with persistent upper respiratory symptoms and wheezing x 11 days - She reports onset of symptoms after se lf-treatment attempts with tesi-dbc-iiiliun medications such as NyQuil, with no significant relief. - Medical intervention included predniso ne and use of a Zpak was initiated on 04/19 by PCP, with steroid completion today without clear symptom resolution. - Her asthma was managed with a Z-Miguel wh ich she completed yesterday, yet lingered symptoms remain. - Ear-related symptoms include popping a nd ringing, particularly in the right ear, alongside persistent coughing. - Albuterol inhaler usage continues, tho ugh the patient reports it does not ameliorate respiratory difficulty. - Inability to use Flonase effectively d ue to unpleasant side effects. - She reports no fever, no lymph node sw elling, but clear nasal discharge continues. Physical Exam General: Cooperative, healthy appearing, comfortable and no acute distress Orientation/consciousness: Patient oriented x3 Limitations: No limitations Head: Normal to inspection Ears: Hearing grossly normal bilaterally, external ears normal and TM's normal bilaterally, fluid in ears noted Nose: Normal external nose present, Normal nares present and No nasal discharge present Face and sinus: Normal facial exam and Yes sinuses nontender Mouth: Normal oral and palatal mucosa present and moist mucous membranes Throat: Yes tonsils normal, Yes uvula midline. Posterior oropharynx erythema Eyes: Appearance normal, both eyes and all related structures Neck: Normal visual inspection, no lymphadenopathy Respiratory: Clear to auscultation bilaterally. Normal respiratory effort, able to speak in complete sentences, Actively coughing, no respiratory distress, not tachypneic, no tripod positioning and no use of accessory muscles, patient reports wheezing Cardiovascular: Regular rate and rhythm. Normal S1 and S2 Skin: No rashes or lesions noted Neuro: Patient oriented x3 Extremities: Normal to inspection and Yes no clubbing, cyanosis or edema [facility] Medical History Epigastric pain Surgical History History of esophagogastroduodenoscopy (EGD) Hx of colonoscopy History of partial hysterectomy Family History (Updated 04/19/24 @ 11:05 by Savanah Joyce CMA) Father HTN (hypertension) Epileptic Social History Housing: Apartment Alcohol intake: current Alcohol intake frequency: a few times a month Alcohol type: wine Patient Tobacco Use Status: Former Tobacco user Tobacco use type: Cigarette e-Cigarette/Vaping Use: Never Used Second Hand Smoke Exposure: No service: No Current occupational status: employed Cognitive needs: No Hearing needs: No Vision needs: Yes Review of Systems Const All systems reviewed & are unremarkable except as noted in HPI and below Physical Exam Vital Signs: Last Vital Signs Pulse 90 04/25/24 10:04 BP 130/94 H 04/25/24 10:04 BMI result Body Mass Index 38.9 Assessment & Plan Assessment & Plan (1) Lower respiratory infection (e.g., bronchitis, pneumonia, pneumonitis, pulmonitis): Code(s): J22 - Unspecified acute lower respiratory infection Plan: Plan The patient?s upper respiratory tract infection is noted to persist despite previous corticosteroid therapy. Azithromycin remains therapeutically active, and supplementary Tessalon Perles will be employed for improved symptom management at night. Recommendations include retrying Flonase with adjusted angulation for improved sinus drainage, reducing nasal congestion that contributes to ear discomfort. Continued albuterol inhaler use to manage symptoms of asthma is recommended. Additionally, consideration of nebulized treatments is acknowledged for improved medication delivery. Hydration and rest are advised to support recovery. Usage of nocturnal Benadryl for symptom relief is reinforced to aid in managing fluid in ears effectively. Patient was informed and verbally consented to the use of an ambient scribe for clinic note documentation during this visit (2) Asthma exacerbation: Code(s): J45.901 - Unspecified asthma with (acute) exacerbation Qualifiers: Asthma severity: mild Asthma persistence: intermittent Qualified Code(s): J45.21 - Mild intermittent asthma with (acute) exacerbation Plan: as above Medications: New benzonatate 200 mg PO TID PRN 14 caps 0RF cough albuterol sulfate 1.25 mg (3 mL) inhalation Q4-6H PRN 75 mL 0RF Shortness Of Breath Or Wheezing fluticasone propionate 50 mcg/actuation administer into each nostril 1 spray intranasal Q12H 16 grams 0RF Coding Level of Care Code Est Pt Level 4 (76901) Diagnoses Lower respiratory infection (e.g., bronchitis, pneumonia, pneumonitis, pulmonitis) J22 Mild intermittent asthma with exacerbation J45.21 Asthma severity: mild Asthma persistence: intermittent
[2024-04-25 10:04] VITALS: BP 130/94; PULSE 90; BMI 38.9
== END 2024-04-25 10:43 | disposition home or self-care (01) ==
PROVIDERS: PCP Internal Medicine; Visit Provider Physician Assistant
DX: J22 Unspecified acute lower respiratory infection (principal); J45.21 Mild intermittent asthma with (acute) exacerbation

== ENCOUNTER 2024-08-15 13:53 | Outpatient (AMB) | payer BC, SELFPAY ==
[2024-08-15 14:05] VITALS: BP 128/82; PULSE 83; RESP 18; TEMP 37.3; O2SAT 98; BMI 39.0
--- NOTE | 2024-08-15 14:05 | A.OFFPC_ITS ---
Vital Signs 08/15/24 14:05 Height 5 ft 1 in Weight 206 lb 3.2 oz BMI 39.0 BP 128/82 Blood Pressure Location Lt brachial Position Sitting Respiration 18 Pulse 83 Pulse Source Pulse Oximeter Temp 99.2 F Temp Source Oral Pulse Oximetry (%) 98 Oxygen Delivery Method Room Air Intake Visit Reasons: BAO from [facility]/Annual Exam Internet Network Specialist Required: No Accompanied by: Self / Same As Patient Allergies No Known Allergies Allergy (Verified 08/15/24 14:31) Medication List - Last Reconciled 08/15/24 by DENNY Reis albuterol sulfate 1.25 mg (3 mL) inhalation Q4-6H PRN albuterol sulfate 90 mcg/actuation 2 puffs PO Q6H PRN conjugated estrogens (Premarin) 1.25 mg PO DAILY fluticasone propion-salmeterol 115-21 mcg/actuation (Advair HFA) 2 puffs inhalation BID 30 days metformin ER 500 mg PO BID naproxen (Naprosyn) 500 mg PO BID PRN omeprazole 20 mg PO DAILY Tobacco use date assessed: 08/15/24 Dental Screening Dental Screen Date: 08/15/24 Did you have a dental visit in the last 12 months?: Yes Did you have a dental problem in the last 6 months where you did not have access to dental care?: No Was dental information given to patient?: Patient has dentist HPI BAO from [facility]/Annual Exam HPI Details The patient is presenting for an annual evaluation and transfer of care from Dr. Denton, who retired Dentist: up to date Eye: up to date Snellen: Right: Left: Corrected vision: glassess/contact STI screening: Colonoscopy: EGD/conoscopy done 2014-03/2025 Pap Smer: Up-to-date Flu: up to date COVID: x3 up to date Tdap: 2019 Diet: Regular Exercise: walk, Patient reports partial hysterectomy that caused her to have menopause symptoms Reports on and off hot flashes and mood changes [facility] her [facility] goal She continue metformin 500 mg b.i.d. for prediabetes and metabolic challenges The patient needs up-to-date it labs-we will order for her to complete as soon as she can Denies chest pain, shortness of breath, heart palpitation Denies abdominal pain. No bowel habits change and no urinary symptoms present PFSH Medical History Epigastric pain Surgical History History of esophagogastroduodenoscopy (EGD) Hx of colonoscopy History of partial hysterectomy Family History Father HTN (hypertension) Epileptic Social History Housing: Apartment Alcohol intake: current Alcohol intake frequency: a few times a month Alcohol type: wine Patient Tobacco Use Status: Former Tobacco user Tobacco use type: Cigarette e-Cigarette/Vaping Use: Never Used Second Hand Smoke Exposure: No service: No Current occupational status: employed Cognitive needs: No Hearing needs: No Vision needs: Yes (Contact lenses) Questionnaire PHQ-9 Over the last 2 weeks, how often have you been bothered by any of the following problems? 1. Little interest or pleasure in doing things: not at all 2. Feeling down, depressed, or hopeless: not at all 3. Trouble falling or staying asleep, or sleeping too much: several days 4. Feeling tired or having little energy: not at all 5. Poor appetite or overeating: several days 6. Feeling bad about yourself - or that you are a failure or have let yourself or your family down: not at all 7. Trouble concentrating on things, such as reading the newspaper or watching television: not at all 8. Moving or speaking so slowly that other people could have noticed. Or the opposite - being so fidgety or restless that you have been moving around a lot more than usual: not at all 9. Thoughts that you would be better off or of hurting yourself in some way: not at all Total score: 2 Depression Screening Interpretation: Negative Depression Screening Done: Yes Source: Developed by Drs. Manuel Williamson, Ila Holly, Kulwinder Crisostomo and colleagues, with an educational lakesha from [employer]. Thrive Questionnaire Date Thrive assessed: 08/15/24 I am a: Patient What is your living situation today?: I have a steady place to live Within the past 12 months, did the food you bought not last and you didn't have the money to get more?: Never true Within the past 12 months, did you worry whether your food would run out before you got money to buy more?: Never true Do you have trouble paying for medicines?: No Do you have trouble getting transportation to medical appointments?: No Do you have trouble paying your heating and electricity bill?: No Do you have trouble taking care of your child, family member or friend?: No Do you have trouble with day-to-day activities such as bathing, preparing meals, shopping, managing finances, etc.?: No Are you currently unemployed and looking for a job?: No Are you interested in more education?: No Please select the resources that you would like help with: None Currently or been in a relationship where the following occur: No concerns reported THRIVE Score: 0 AUDIT C Alcohol Use Questionnaire (AUDIT-C) 1. How often do you have a drink containing alcohol?: Never Total Score: 0 Score Reviewed/Action Taken: No ARIEL-7 AMB Questionnaire ARIEL-7 Date ARIEL - 7 assessed: 08/15/24 Feeling nervous, anxious, or on edge: 0 = Not at all Not being able to stop or control worryin = Not at all Worrying too much about different things: 0 = Not at all Trouble relaxin = Not at all Being so restless that it is hard to sit still: 1 = Several days Becoming easily annoyed or irritable: 3 = Nearly every day Feeling afraid as if something awful might happen: 0 = Not at all Total ARIEL-7 score (0-4 normal; 5-9 mild; 10-14 moderate; 15-21 severe): 4 Source: Developed by Drs. Manuel Williamson, Ila Holly, Kulwinder Crisostomo and colleagues, with an educational lakesha from [employer]. Review of Systems Const Denies headache(s) Eyes Reports itchy eyes (Seasonal) and Denies loss of vision ENT Denies vertigo, Denies dizziness, Denies headache(s), Denies sore throat and Reports other (Runny nose/sneezing) Card Denies chest pain, Denies leg edema and Denies lightheadedness Resp Denies cough, Denies hemoptysis and Denies wheezing GI Denies abdominal pain, Denies melena, Denies constipation, Reports heartburn, Denies diarrhea and Denies vomiting Denies urinary frequency, Denies dysuria and Denies urinary urgency Musc Reports arthralgias (Bilateral Knee pain with activity), Denies joint swelling, Denies numbness and Denies tingling Neuro Denies Abnormal speech present, Denies behavioral changes, Denies vertigo, Denies dizziness, Denies headache(s), Denies loss of vision, Denies memory loss, Denies numbness and Denies tingling Psych Denies anxiety, Denies behavioral changes, Denies depression, Denies memory loss and Denies panic attacks Og/Lymph Denies easy bleeding and Denies easy bruising Aller/Immun Reports itchy eyes (Seasonal) and Denies wheezing Physical exam (Primary Care) Vital Signs: Last Vital Signs Temp 99.2 F 08/15/24 14:05 Pulse 83 08/15/24 14:05 Resp 18 08/15/24 14:05 BP 128/82 08/15/24 14:05 Pulse Ox 98 08/15/24 14:05 Oxygen Delivery Method Room Air 08/15/24 14:05 BMI result Body Mass Index 39.0 Tobacco/Smoking Status: Tobacco use Status Tobacco use date assessed 08/15/24 08/15/24 14:07 Patient Tobacco Use Status Former Tobacco user 08/15/24 14:07 Tobacco use type Cigarette 08/15/24 14:07 e-Cigarette/Vaping Use Never Used 08/15/24 14:07 PHQ-9: PHQ-9 Score PHQ-9: Total score 2 08/15/24 14:33 Depression Screening Interpretation: Negative Thrive Assessment: Date of Thrive Assessment Date Thrive assessed 08/15/24 08/15/24 14:07 Currently or been in a relationship where the following occur: No concerns reported Const General: healthy appearing, no acute distress, alert and awake Nutritional Appearance: well nourished Orientation/consciousness: oriented to person, oriented to place and oriented to time HENMT Ears: TM's normal bilaterally General nose exam: Abnormal mucous membranes and turbinates present and Nasal discharge present clear Eyes Conjunctivae: conjunctivae normal Sclerae: sclerae normal Pupils: Equal, round and reactive pupils present Neck Neck: Yes no lymphadenopathy and Yes no JVD Thyroid: Thyroid normal Carotids: no bruits Resp Effort & Inspection: normal respiratory effort and not tachypneic Auscultation: no crackles, no rales, no rhonchi and no wheezes Cardio Rate: regular rate Rhythm: regular rhythm Heart sounds: Murmur heart sound present systolic and normal S1 and S2 GI Palpation (GI): Soft to palpation, Tenderness to palpation present (GI) (Pressure in epigastric area with palpation), no hepatomegaly, no splenomegaly and Hernia present (History of hiatal hernia) Auscultation: normal bowel sounds General: Yes no CVA tenderness Back/Spine/Pelvis Back: no CVA tenderness Cervical Spine: No Cervical spine tenderness Thoracic/Lumbar Spine: No thoracic spinal tenderness and No lumbar spinal tenderness Skin General skin exam: no rashes or lesions noted and dry skin Neuro General: oriented to person, oriented to place and oriented to time Cranial nerves: Yes Equal, round and reactive pupils present Speech: No Abnormal speech present Gait exam (Neuro): Normal gait present Motor exam (neuro): no tremor noted Extrem Right upper extremity: full ROM Left upper extremity: full ROM Right lower extremity: full ROM; no edema Left lower extremity: full ROM; no edema Psych Mental Status: mental status grossly normal Speech and movement: Normal speech and movement present Affect: normal affect Attitude: cooperative Thought process: Normal thought process present Results AMB Hemoglobin A1c AMB Hemoglobin A1c 5.6 % Last Edit by Sona Villatoro CMA on 08/15/24 14:24 Results Reviewed Results Reviewed: Laboratory Last Values Hgb A1c (Clinic) 5.6 % (4.0-6.0) 08/15/24 14:23 Coding Level of Care Code Est Pt Prev Care 40-64y(27800) Diagnoses Physical exam Z00.00 Asthma, unspecified asthma severity, unspecified whether complicated, unspecified whether persistent J45.909 Asthma severity: unspecified severity Asthma persistence: unspecified Asthma complication type: unspecified VSD (ventricular septal defect) Q21.0 Prediabetes R73.03 Class 2 obesity due to excess calories without serious comorbidity with body mass index (BMI) of 39.0 to 39.9 in adult E66.812; E66.09; Z68.39 Obesity type: due to excess calories Obesity classification: adult class 2 (BMI 35 - 39.9) Serious obesity comorbidity presence: without serious comorbidity Body mass index: BMI 39.0-39.9 Epigastric pain R10.13 Seasonal allergies J30.2 Time Spent (min) 38 Assessment & Plan Assessment & Plan (1) Physical exam: Code(s): Z00.00 - Encounter for general adult medical examination without abnormal findings Category: Medical Plan: Preventative guidelines reviewed with the patient. No recent labs obtained. Labs were ordered for the patient to complete as soon as she can. Colonoscopy due at the end of this year. Patient is up-to-date on her other screens. (2) Asthma: Code(s): J45.909 - Unspecified asthma, uncomplicated Category: Medical Qualifiers: Asthma severity: unspecified severity Asthma persistence: unspecified Asthma complication type: unspecified Qualified Code(s): J45.909 - Unspecified asthma, uncomplicated Plan: Patient denies shortness of breath and wheezing. Lungs are clear on auscultation bilaterally. Continue Advair HFA 2 puffs inhalation b.i.d., albuterol sulfate 90 mcg/actuation 2 puffs Q 6 hours p.r.n. and nebulizer treatment Q 4-6 hours p.r.n. (3) VSD (ventricular septal defect): Code(s): Q21.0 - Ventricular septal defect Category: Medical Plan: Stable. Known systolic murmur heard (4) Prediabetes: Code(s): R73.03 - Prediabetes Category: Medical Plan: Reinforced diet low in sugar/carbohydrate and activity as tolerated Continue metformin 500 mg b.i.d. (5) Obesity: Code(s): E66.9 - Obesity, unspecified Category: Medical Qualifiers: Obesity type: due to excess calories Obesity classification: adult class 2 (BMI 35 - 39.9) Serious obesity comorbidity presence: without serious comorbidity Body mass index: BMI 39.0-39.9 Qualified Code(s): E66.812 - Obesity, class 2; E66.09 - Other obesity due to excess calories; Z68.39 - Body mass index [BMI] 39.0-39.9, adult Plan: Reinforced low-cholesterol/fat/carbohydrate/sugar diet and activity as tolerated (6) Epigastric pain: Comment: 45-year-old female persistent acid reflux epigastric pain-she has not been taking any medication. We submitted H pylori breath test-and she may begin omeprazole 20 mg daily. Code(s): R10.13 - Epigastric pain Category: Medical Plan: Patient is reporting frequent heartburn even without meals. She is currently on omeprazole 20 mg daily. We will increase omeprazole to 40 mg daily. Contact office if symptom isn't improving or worsening. (7) Seasonal allergies: Code(s): J30.2 - Other seasonal allergic rhinitis Category: Medical Plan: yrtec D 1 tab q.12 hours p.r.n. ordered Orders: Orders AMB Hemoglobin A1c Today E11. - Type 2 diabetes mellitus with other specified complication, E66.9 - Obesity, unspecified Comprehensive Jackson. Panel Fast Today E11. - Type 2 diabetes mellitus with other specified complication, E66.9 - Obesity, unspecified, J45.21 - Mild intermittent asthma with (acute) exacerbation, J45.909 - Unspecified asthma, uncomplicated, R05.9 - Cough, unspecified, R10.13 - Epigastric pain, Z00.00 - Encounter for general adult medical examination without abnormal findings Complete Blood Count Auto Diff Today . - Type 2 diabetes mellitus with other specified complication, E66.9 - Obesity, unspecified, J45.21 - Mild intermittent asthma with (acute) exacerbation, J45.909 - Unspecified asthma, uncomplicated, R05.9 - Cough, unspecified, R10.13 - Epigastric pain, Z00.00 - Encounter for general adult medical examination without abnormal findings UA CC w/rflx Micro + Cult Today . - Type 2 diabetes mellitus with other specified complication, E66.9 - Obesity, unspecified, J45.21 - Mild intermittent asthma with (acute) exacerbation, J45.909 - Unspecified asthma, uncomplicated, R05.9 - Cough, unspecified, R10.13 - Epigastric pain, Z00.00 - Encounter for general adult medical examination without abnormal findings Vitamin D 25-OH Total Today . - Type 2 diabetes mellitus with other specified complication, E66.9 - Obesity, unspecified, J45.21 - Mild intermittent asthma with (acute) exacerbation, J45.909 - Unspecified asthma, uncomplicated, R05.9 - Cough, unspecified, R10.13 - Epigastric pain, Z00.00 - Encounter for general adult medical examination without abnormal findings Glucose Fasting Today E11.69 - Type 2 diabetes mellitus with other specified complication, E66.9 - Obesity, unspecified, J45.21 - Mild intermittent asthma with (acute) exacerbation, J45.909 - Unspecified asthma, uncomplicated, R05.9 - Cough, unspecified, R10.13 - Epigastric pain, Z00.00 - Encounter for general adult medical examination without abnormal findings Lipid Panel Today E11.69 - Type 2 diabetes mellitus with other specified complication, E66.9 - Obesity, unspecified, J45.21 - Mild intermittent asthma with (acute) exacerbation, J45.909 - Unspecified asthma, uncomplicated, R05.9 - Cough, unspecified, R10.13 - Epigastric pain, Z00.00 - Encounter for general adult medical examination without abnormal findings TSH reflex Free T4 Today E11.69 - Type 2 diabetes mellitus with other specified complication, E66.9 - Obesity, unspecified, J45.21 - Mild intermittent asthma with (acute) exacerbation, J45.909 - Unspecified asthma, uncomplicated, R05.9 - Cough, unspecified, R10.13 - Epigastric pain, Z00.00 - Encounter for general adult medical examination without abnormal findings Medications: New conjugated estrogens (Premarin) 1.25 mg PO DAILY 90 tabs 0RF cetirizine-pseudoephedrine 5-120 mg ER (Zyrtec-D) 1 tab PO Q12H PRN 60 tabs 0RF allergy symptoms omeprazole 40 mg PO DAILY 90 caps 3RF Discontinued omeprazole Discontinued Reason: Doctor's Order 20 mg PO DAILY 30 caps 5RF
== END 2024-08-15 15:01 | disposition home or self-care (01) ==
LOC: HO.HMCH 13:54
DX: Z00.00 Encounter for general adult medical examination without abnormal findings (principal); J45.909 Unspecified asthma, uncomplicated; Q21.0 Ventricular septal defect; R73.03 Prediabetes; E66.812 Obesity, class 2; E66.09 Other obesity due to excess calories; Z68.39 Body mass index [BMI] 39.0-39.9, adult; R10.13 Epigastric pain; J30.2 Other seasonal allergic rhinitis; E11.69 Type 2 diabetes mellitus with other specified complication; E66.9 Obesity, unspecified

== ENCOUNTER → 2024-08-15 13:53 | Outpatient (BNVA) | payer BC, SELFPAY | PROVIDERS: PCP Internal Medicine | DX: Z00.00 Encounter for general adult medical examination without abnormal findings (principal); J45.909 Unspecified asthma, uncomplicated; R73.03 Prediabetes; E66.812 Obesity, class 2; E66.09 Other obesity due to excess calories; Z68.39 Body mass index [BMI] 39.0-39.9, adult; R10.13 Epigastric pain; Q21.0 Ventricular septal defect; Z79.84 Long term (current) use of oral hypoglycemic drugs; Z79.899 Other long term (current) drug therapy | CPT/HCPCS: 83036; 96127 ==

== ENCOUNTER → 2024-10-02 14:56 | Outpatient (REF) | payer BC, SELFPAY ==
--- NOTE | 2024-10-02 14:59 | CA_ITS ---
Transthoracic Echocardiogram Patient (Last, First, Middle): Rocio Wilson E Gender: Female Date of : 1975 Age: 49 Procedure Date: 10/02/2024 Procedure Type: Transthoracic Echocardiogram Location: OP Height: 154.94 cm Weight: 93.44 kg BSA: 1.91 m2 Heart Rate: bpm BP: 128 / 82 mmHg Engineer/Conductor: KERVIN/GAVINO Referring MD: Arnaldo Merlos MD Symptoms: Q21.0 - Ventricular septal defect Study Quality: Adequate ECG Rhythm: Sinus Conclusions: - The left ventricular systolic function is normal. The calculated ejection fraction is 64% by biplane method. - There is evidence of a small membranous ventricular septal defect. - No obvious valvular pathology seen on this study. Findings Left Ventricle Normal left ventricular cavity size. The left ventricular systolic function is normal. The calculated ejection fraction is 64% by biplane method. There is no evidence of regional wall motion abnormalities. There is evidence of a small membranous ventricular septal defect. Right Ventricle Normal right ventricular cavity size and systolic function. Atria Both atria are normal in size. Aortic Valve There is a normal trileaflet aortic valve. There is no aortic valve stenosis. There is no aortic valve regurgitation. Mitral Valve The mitral valve appears normal. There is trace mitral valve regurgitation. There is no mitral valve stenosis. Pulmonic Valve The pulmonic valve is likely normal. Tricuspid Valve There is trace tricuspid valve regurgitation. There is no evidence of pulmonary hypertension. Great Vessels The asc aorta is normal in size. Venous The inferior vena cava is normal in size and collapses greater than 50% with inspiration. Pericardium/Pleural There is no evidence of pericardial effusion. Prior Study Comparison No significant change compared to prior study dated: 10/14/2021. Recommendations, Care & Conclusions No obvious valvular pathology seen on this study. Measurements 2D Linear Measurements IVSd: 1.02 0.6-0.9/0.6-1.0 cm LVIDd: 4.42 3.9-5.3/4.2-5.9 cm LVIDd Index: 2.31 2.4-3.2/2.2-3.1 cm/m2 LVIDs: 3.06 2.0-3.6 cm LVPWd: 0.96 0.7-1.1 cm LA Diam: 4.30 2.7-3.8/3.0-4.0 cm LAIDs Index: 2.25 1.5-2.3 cm/m2 LV Mass: 182.19 67-162/88-224 g LV Mass Index: 95.39 43-95/49-115 g/m2 LVOT Diam: 2.00 3.0+(-)1.3 cm 2D Systolic Function EF 4C: 66.70 >55% EF 2C: 60.70 >55% EF BiP: 64.10 >55% Mitral Valve MV Pk E: 0.90 MV PK A: 0.84 MV Decel Time: 236.00 E/A: 1.10 E'Lateral: 12.40 E'Medial: 9.79 E/E' Med: 9.20 E/E' Lat: 7.20 PHT: 69.00 MVA PHT: 3.19 Decel [place]: 3.79 Aortic Valve AoV Pk Fox: 1.44 AoV Mn Fox: 0.92 AoV VTI: 0.27 AoV Pk Grad: 8.00 Aov Mn Grad: 4.00 ESTRELLITA Cont.VTI: 2.42 LVOT LVOT Pk Fox: 1.10 LVOT Mn Fox: 0.74 LVOT VTI: 0.21 LVOT Pk Grad: 5.00 LVOT Mn Grad: 3.00 LVOT Diam: 2.00 LVOT Area: 3.14 Diastolic Function MV Pk E: 0.90 MV Pk A: 0.84 E/A: 1.10 E'Medial: 9.79 E/E' Med: 9.20 E' Laterial: 12.40 E/E' Lat: 7.20 Right Ventricle TAPSE (mm): 20.30 TVS' Fox: 11.30 Tricuspid Valve RA Press: 8.00 Great Vessels Aorta Sinus of Valsalva: 3.00 2.0-3.5 cm Ao Asc: 2.80 2.1-3.4 cm Ao Arch: 2.90 Shunting QP:QS: 0.80 Updated in Other Vendor System with Status of Final González Rodriguez MD electronically signed on 10/03/2024 11:34:47 AM with status of Final
== END ==
LOC: HO.CARD 14:56
PROVIDERS: Visit Provider Internal Medicine Cardiovascular Disease
DX: Q21.0 Ventricular septal defect (principal)
CPT/HCPCS: 93306

== ENCOUNTER → 2024-10-02 14:59 | Outpatient (BNV) | payer BC, SELFPAY | PROVIDERS: Visit Provider Internal Medicine | DX: Q21.0 Ventricular septal defect (principal) | CPT/HCPCS: 93306 ==

== ENCOUNTER 2024-11-12 15:06 | Outpatient (AMB) | payer BC, SELFPAY ==
--- OUTSIDE RECORDS SUMMARY | 2024-11-12 15:10 | XMS_ITS | Clinical Summary ---
Author Organization [facility] Address [address] [address] Phone Care Team Providers Care Trolley Operator Name Role Phone Jeffrey Denton MD Primary Care Provider [phone] Allergies No known active allergies Medications BD INSULIN PEN NEEDLE UF SHORT 31 gauge x 5/16 NdleIndications: Class 1 obesity due to excess calories without serious comorbidity with body mass index (BMI) of 30.0 to 30.9 in adult 1 each by Miscellaneous route every morning. 100 each 3 05/22/19 23 Active EPINEPHrine 0.3 mg/0.3 mL auto-injector 10/13/19 23 Active azelastine (ASTELIN) 137 mcg (0.1 %) nasal spray 1 spray by Nasal route daily. 08/27/19 23 Active albuterol 90 mcg/actuation inhaler Inhale 1 puff into the lungs daily as needed. 07/29/19 23 Active PREMARIN 1.25 mg tablet Take 1.25 mg by mouth daily. 08/09/19 24 Active tirzepatide, weight loss, (ZEPBOUND) 2.5 mg/0.5 mL subcutaneous penIndications:C lass 1 obesity due to excess calories without serious comorbidity with body mass index (BMI) of 30.0 to 30.9 in adult Inject 0.5 mL (2.5 mg total) under the skin every 7 days. 2 mL 3 05/21/19 25 Active topiramate (TOPAMAX) 100 MG tabletIndication s:Class 1 obesity due to excess calories without serious comorbidity with body mass index (BMI) of 30.0 to 30.9 in adult Take 1 tablet (100 mg total) by mouth 2 (two) times a day. 90 tablet 1 05/21/19 25 Active phentermine 15 MG capsuleIndicatio ns:Class 1 obesity due to excess calories without serious comorbidity with body mass index (BMI) of 30.0 to 30.9 in adult Take 1 capsule (15 mg total) by mouth every morning. 90 capsule 1 05/21/19 25 Active Active Problems Problem Noted Date Diagnosed Date Class 1 obesity due to exces s calories without serious comorbidity with body mass index (BMI) of 30.0 to 30.9 in adult 04/18/2018 Assessment & Plan (05/21/2024 8:43 AM EST): She has lost 8 pounds with phentermine topiramate we will continue we will try our prescribing Zepbound and see if this is covered. Assessment & Plan (11/16/2023 9:16 AM EDT): Her weight is stable with the use of phentermine and topiramate. She did not lose any weight but at least she did not gain any weight. Will continue current regimen. She states that she will inquire with insurance again regarding GLP-1 agonists which may be on formulary but she suspected that is not on formulary. Misael states that it is on formulary so I will prescribe starting at 0.25 mg weekly. Assessment & Plan (08/16/2023 12:28 PM EDT): Unfortunately has gained 6 pounds because her insurance does not cover obesity medications any longer so I will prescribe phentermine and topiramate. Assessment & Plan (10/29/2022 9:02 AM EDT): Unfortunately she has gained 14 pounds but this is also due to prednisone administration. We will continue current medications. Assessment & Plan (03/15/2022 8:59 AM EST): Continues to do well lost 4 pounds since the last visit we will continue current regimen. Assessment & Plan (09/11/2021 8:49 AM EDT): Patient states that she is still stressed from work. However she has had an improvement in weight she is lost 8 pounds since her last visit. She tries to monitor her diet and is exercising regularly Assessment & Plan (06/11/2021 8:51 AM EST): We will continue current medications. The patient needs to focus on diet and exercise. Assessment & Plan (12/11/2020 10:20 AM EDT): Continue current medications I would not make any changes. Encourage the patient is to count calories to monitor what she is and start exercising again. Assessment & Plan (04/24/2020 8:53 AM EST): Unfortunately she has gained 8 pounds in part of this is partially because she had surgery recently not able to exercise. We will continue current medications. Assessment & Plan (10/22/2019 8:44 AM EDT): He is lost another 12 pounds at this point there are not other obesity medications. She is continue to diet and exercise and the only thing I can think of that will help her lose more weight is bariatric surgery at this point. She is lost significant amount of weight so that they could possibly proceed with this this only thing she should consider if she wants to go that route. Assessment & Plan (04/23/2019 8:53 AM EST): The patient unfortunately has gained weight. She has to pay for cutaneous she could not tolerate Contrave. We will add Saxenda. I told her that this medication can be associated with nausea, diarrhea, abdominal pain. She will have some nausea at the beginning she will start out with the smallest dose 0.6 mg daily. She can do this for week and if she feels the nausea is only she can increase the dose to 1.2 mg if not she can continue on the smaller dose for a longer period of time. As long as she feels well she can keep increasing the dose until she reaches 3 mg. She should continue Q Kelsie and metformin. Assessment & Plan (10/20/2018 9:12 AM EDT): Unfortunately the patient has not lost any weight but her weight has remained stable. At this point she should continue Q Kelsie and I will add Belviq extended release once daily. Assessment & Plan (04/18/2018 9:03 AM EST): At this point I encourage the patient to drink more water. To try to increase exercise. Continue to monitor her diet. At this point I think she needs to work on this before we add a second or third agent for obesity management. Prediabetes 04/18/2018 Assessment & Plan (05/21/2024 8:43 AM EST): Continue diet and exercise hemoglobin A1c 5.9%. Assessment & Plan (11/16/2023 9:21 AM EDT): Hemoglobin A1c has decreased to 5.7% from 6.0% this is off metformin. She is still in the prediabetic range. I have prescribed Wegovy for weight loss and this should decrease her A1c's are not prescribing metformin at the present time. Assessment & Plan (08/16/2023 1:15 PM EDT): Initially this patient was taking metformin for prediabetes but she has been on a full dose of metformin 2000 mg a day and her A1c at the time was 5.8%. She has been off metformin now. Repeat wjtjc-xa-[id number] today was 6.0% will prescribe Ozempic 0.25 mg for the first 4 weeks and then she should increase it to 0.5 mg weekly thereafter I did confirm that there is no history of medullary thyroid carcinoma or pancreatitis. Informed the patient this medication may be associated with nausea, vomiting, diarrhea, constipation. Assessment & Plan (10/29/2022 9:03 AM EDT): Continue metformin and requesting hemoglobin A1c for follow-up visit Assessment & Plan (03/15/2022 9:00 AM EST): Last hemoglobin A1c 5.9% and will repeat hemoglobin A1c for the follow-up visit. Assessment & Plan (09/11/2021 8:50 AM EDT): Unfortunately A1c has increased to 5.9% she was as low as 5.1% with the use of metformin. I will not make any changes encourage further weight loss, monitoring diet and exercise. Assessment & Plan (06/11/2021 8:51 AM EST): Continue Metformin. Assessment & Plan (12/11/2020 10:21 AM EDT): Continue Metformin at the current dose. Assessment & Plan (04/24/2020 9:07 AM EST): She continues on Metformin 500 mg twice a day for prevention of diabetes progression but she is also on Saxenda which is for obesity but it is a GLP-1 agonist we have which helps control glycemia. Her hemoglobin A1c today was 5.5% I requested a CBC to check hemoglobin and hematocrit to determine if she is anemic or not since she recently had surgery and had a lot of blood loss. She will follow in 6 months. Assessment & Plan (10/22/2019 8:45 AM EDT): Patient should continue metformin extended release 500 mg twice daily. Assessment & Plan (04/23/2019 8:53 AM EST): Hemoglobin A1c is 5.3% continue metformin 500 mg 2 tablets p.o. twice daily. Assessment & Plan (10/20/2018 9:12 AM EDT): Last A1c was 5.1 on metformin extended release 500 mg twice a day so she is not in the prediabetic range but she continues on metformin for weight loss. Assessment & Plan (04/18/2018 9:04 AM EST): As for prediabetes her hemoglobin A1c is 5.1% now so this means that the metformin is definitely working she is not in the prediabetic range based on this A1c. We are going to continue metformin for weight loss. She is not experiencing any hypoglycemia so we will continue the current management. Family History Medical History Relation Comments No Known Problems Brother Coronary artery disease Father Hyperlipidemia Father Hypertension Father Seizures Father No Known Problems Mother Coronary artery disease Paternal Grandmother Colon cancer Paternal Uncle No Known Problems Sister Relation Status Comments Brother Alive Father Alive Maternal Uncle Mother Alive Paternal Grandmother Paternal Uncle Sister Alive Social History Tobacco Use Types Packs/Day Years Used Date Smoking Tobacco: Former Cigarettes 0 06/18/2008 - 06/18/2014 Smokeless Tobacco: Never Tobacco Cessation:Counseling Given: Not Answered Alcohol Use Standard Drinks/Week Comments Yes 4 (1 standard drink = 0.6 oz pur e alcohol) Education Answer Date Recorded Are you interested in more education? Not on magno e 08/06/2022 Are you concerned about learning? Not on file 08/06/2022 No 08/06/2022 No 08/06/2022 Digital Access Answer Date Recorded No 09/07/2022 No 09/07/2022 Reliable internet access at home? Not on file 09/07/2022 Device with a working camera? Not on file Comments Unknown Sex and Gender Information Value Date Recorded Sex Assigned at Not on file Legal Sex Female 10:41 AM EDT Gender Identity Not on file Sexual Orientation Not on file Last Filed Vital Signs Vital Sign Reading Time Taken Comments Blood Pressure 130/88 05/21/2024 8:12 AM EST Pulse 93 05/21/2024 8:12 AM EST Temperature 36.5 C (97.7 F) 10/29/2022 8:14 AM EDT Respiratory Rate - - Oxygen Saturation 98% 05/21/2024 8:12 AM EST Inhaled Oxygen Concentration - - Weight 92.7 kg (204 lb 6.4 oz) 05/21/2024 8:12 A M EST Height 155 cm (5' 1.02 ) 05/21/2024 8:12 AM EST Body Mass Index 38.59 05/21/2024 8:12 AM EST Plan of Treatment Upcoming Encounters Date Type Department Care Team (Late st Contact Info) Description 11/20/2024 8:50 AM EDT Office Visit [facility] [address] [place] [address] [place] [address] Griffin Corral DO [address] [place] [phone] Health Maintenance Due Date Last Done Comments DEPRESSION SCREENING 1988 SMOKING Hx and SMOKELESS TOBACCO SCREENING 1989 HEPATITIS C SCREENING 1994 HIV ONE-TIME SCREENING (18-6 5 YEARS) 1994 PAP SMEAR 1997 MAMMOGRAM 2016 COLOGUARD 2021 COLONOSCOPY 2021 COLORECTAL CANCER SCREENING 2021 FIT TEST 2021 FOBT 2021 SIGMOIDOSCOPY 2021 VIRTUAL COLONOSCOPY 2021 COVID-19 VACCINE (3 - 2023-2 5 season) 2023 06/06/2020, 05/02/2020 SCREENING FOR DIABETES 11/18/2026 , 11/13/2022 Adult Td,Tdap Booster 08/28/2028 08/28/2018 LIPID PANEL 11/18/2028 11/19/2023, 06/20/2021 HEPATITIS A VACCINES Aged Out No long er eligible based on patient's age to complete this topic HIB VACCINES Aged Out No longer eligi ble based on patient's age to complete this topic MENINGOCOCCAL VACCINES (ACWY) Aged Out No longer eligible based on patient's age to complete this topic MENINGOCOCCAL VACCINES (B) Aged Out N o longer eligible based on patient's age to complete this topic PNEUMOCOCCAL VACCINES (0-49 years) Aged Out No longer eligible b ased on patient's age to complete this topic Medical Devices Not on file Procedures Procedure Name Priority Date/Time Associated Diagnosis Comments LIPID PANEL Routine 11/19/2023 8:57 AM EDT Prediabetes from Last 3 Months or Most Recently Relevant to Health Maintenance Results * (ABNORMAL) Lipid panel (11/19/2023 8:57 AM EDT) HDL 57 mg/dL [facility] Comment: Interpretation <40 mg/dL: Low HDL cholesterol (major risk factor for CHD) Greater than or equal to 60 mg/dL: High HDL cholesterol ( negative risk factor for CHD) HDL - cholesterol is affected by a number of factors, e.g. smoking, excerise, hormones, sex and age. CHOLESTEROL 171 0 - 240 mg/dL [facility] TRIGLYCERIDES 70 30 - 160 mg/dL [facility] LDL 100 50 - 129 mg/dL [facility] Comment: LDL levels in terms of risk for coronary heart disease: <100 mg/dL: Optimal 100-129 mg/dL: Near or above optimal 130-159 mg/dL: Borderline high 160-189 mg/dL: High >190 mg/dL: Very High CARDIAC RISK RATIO 3.0(L) 3.3 - 4.4 C [facility] Blood 11/19/2023 8:57 AM EDT 11/19/2023 9:02 AM EDT us Griffin Corral DO LAB BLOOD ORDERABLES Final Resul t [facility] [address] [place] [address] from Last 3 Months or Most Recently Relevant to Health Maintenance Insurance [address] [id number] [facility] OUT [facility] PPO BLUE CROSS OUT OF STATE PPO BLUE CROSS OUT OF STATE PPO BLUE CROSS OUT OF STATE PPO BLUE CROSS OUT OF STATE PPO BLUE CROSS OUT OF STATE PPO BLUE CROSS OUT OF STATE [place] [address] [place] [address] OUT OF STATE PPO Care Teams Trolley Operator Relationship Specialty Start Date End Date Jeffrey Denton MD [address] [place] [id number] PCP - General Internal Medicine 10/17/17 Additional Source Comments The information contained in this document represents components of the legal health record. It is not the complete legal health record.[facility]
--- NOTE | 2024-11-12 15:18 | MHC.OFFVIS ---
Vital Signs 11/12/24 15:19 Height 5 ft 1 in Weight 211 lb 10.3 oz BMI 40.0 BP 120/82 Blood Pressure Location Lt brachial Position Sitting Pulse 91 Intake Visit Reasons: 2 yr f/up Intake Note: 3 year old ekg feeling good Beef Splitter Required: No Allergies No Known Allergies Allergy (Verified 08/15/24 14:31) Medication List - Last Reconciled 11/12/24 by Arnaldo Merlos MD albuterol sulfate 1.25 mg (3 mL) inhalation Q4-6H PRN albuterol sulfate 90 mcg/actuation 2 puffs PO Q6H PRN cetirizine-pseudoephedrine 5-120 mg ER (Zyrtec-D) 1 tab PO Q12H PRN conjugated estrogens (Premarin) 1.25 mg PO DAILY fluticasone propion-salmeterol 115-21 mcg/actuation (Advair HFA) 2 puffs inhalation BID 30 days metformin ER 500 mg PO BID naproxen (Naprosyn) 500 mg PO BID PRN omeprazole 40 mg PO DAILY HPI Comments Details: Rocio comes for 2 year follow-up. Recent echocardiogram does not show any significant change in her cardiac structure and function. Still still has small VSD. Takes antibiotics prior to dental work. Her main concern in his inability to lose weight and she has tried other methods and currently has prediabetes. She is concerned about it. Denies any significant exertional chest pain or shortness of breath especially after her asthma has been controlled. No orthopnea, PND, leg edema. [facility] Medical History Epigastric pain Surgical History History of esophagogastroduodenoscopy (EGD) Hx of colonoscopy History of partial hysterectomy Family History Father HTN (hypertension) Epileptic Social History Housing: Apartment Alcohol intake: current Alcohol intake frequency: a few times a month Alcohol type: wine Patient Tobacco Use Status: Former Tobacco user Tobacco use type: Cigarette e-Cigarette/Vaping Use: Never Used Second Hand Smoke Exposure: No service: No Current occupational status: employed Cognitive needs: No Hearing needs: No Vision needs: Yes (Contact lenses) Review of Systems Const Denies chills, Denies fatigue, Denies fever(s), Denies frequent falls, Denies weakness, Denies weight gain and Denies weight loss ENT Denies dizziness Card Denies chest pain, Denies leg edema, Denies lightheadedness, Denies palpitations, Denies dyspnea, Denies dyspnea on exertion, Denies orthopnea and Denies other (loss of consciousness) Resp Denies cough, Denies dyspnea and Denies dyspnea on exertion GI Denies hematochezia and Denies change in stool character Musc Denies abnormal gait, Denies muscle weakness, Denies numbness, Denies radiating pain into limb and Denies tingling Neuro Denies abnormal gait, Denies dizziness, Denies frequent falls, Denies numbness, Denies tingling and Denies weakness Endo Denies fatigue and Denies palpitations Physical Exam Vital Signs: Last Vital Signs Pulse 91 11/12/24 15:19 BP 120/82 11/12/24 15:19 BMI result Body Mass Index 40.0 Const General: cooperative, comfortable, no acute distress, well developed, alert, awake, Physically active and well groomed Nutritional Appearance: obese Orientation/consciousness: patient oriented x3 Limitations: no limitations Neck Neck: Yes trachea midline, Yes supple and Yes no JVD Chest Chest palpation & inspection: normal inspection of the chest Resp Effort & Inspection: normal respiratory effort Auscultation: clear to auscultation bilaterally Cardio Jugular venous distension: no JVD Palpation: normal PMI Rate: regular rate Rhythm: regular rhythm Heart sounds: S1 normal heart sound present, S2 normal heart sound present, no click, no gallops and Murmur heart sound present systolic holo, harsh and at the left sternal border GI Auscultation: normal bowel sounds Skin General skin exam: no rashes or lesions noted Neuro General: patient oriented x3 and no focal motor deficits Extrem General: Yes no clubbing, cyanosis or edema Office Procedures EKG Details: EKG shows normal sinus rhythm with normal EKG at 91 beats per minute [id number]-[id number], Complete Assessment & Plan Assessment & Plan (1) VSD (ventricular septal defect): Code(s): Q21.0 - Ventricular septal defect Category: Medical Plan: Small VSD without any change in morphology or cardiac structure and function which is expected. Continue SBE prophylaxis as per ACC/aha guidelines. She is developing obesity related complications especially prediabetes. Will refer her to bariatric clinic for further evaluation for possible medical weight loss and other treatment options. She is agreeable. Will follow up in the clinic in 3 years' time, sooner p.r.n.. Thank you for allowing me to partake in her care Orders: Referrals Bariatric Surgery Referral E66.09 - Other obesity due to excess calories, E66.812 - Obesity, class 2, Z68.39 - Body mass index [BMI] 39.0-39.9, adult Coding Level of Care Code Est Pt Level 3 (79495) Complex EM visit Add On G2211 Diagnoses VSD (ventricular septal defect) Q21.0 CPT Codes EKG - CPT: 50837-Lvocxqwbrwhhrnlwc, Complete ([id number])
[2024-11-12 15:19] VITALS: BP 120/82; PULSE 91; BMI 40.0
== END 2024-11-12 15:34 | disposition home or self-care (01) ==
LOC: HO.HCS 15:07
PROVIDERS: Visit Provider Internal Medicine Cardiovascular Disease
DX: Q21.0 Ventricular septal defect (principal)
CPT/HCPCS: 93010; 99213

== ENCOUNTER → 2024-11-12 15:06 | Outpatient (BNVA) | payer BC, SELFPAY | PROVIDERS: Visit Provider Internal Medicine Cardiovascular Disease | DX: Q21.0 Ventricular septal defect (principal) | CPT/HCPCS: 93005 ==

== ENCOUNTER 2024-11-20 09:57 | Outpatient (REF) | payer BC, SELFPAY ==
[2024-11-20 10:24] LABS: MANUAL DIFF FLAG NO
--- OUTSIDE RECORDS SUMMARY | 2024-11-20 10:48 | XMS_ITS | Clinical Summary ---
Author Organization [facility] Address [address] [address] Phone Care Team Providers Care Potato Picker Name Role Phone Jeffrey Denton MD Primary Care Provider [phone] Allergies No known active allergies Medications BD [...] 1 tablet (100 mg total) by mouth daily. 90 tablet 1 11/21/19 25 Active phentermine 15 MG capsuleIndicatio ns:Class 1 obesity due to excess calories without serious comorbidity with body mass index (BMI) of 30.0 to 30.9 in adult Take 1 capsule (15 mg total) by mouth every morning. 90 capsule 1 11/21/19 25 Active topiramate (TOPAMAX) 100 MG tabletIndication s:Class 1 obesity due to excess calories without serious comorbidity with body mass index (BMI) of 30.0 to 30.9 in adult Take 1 tablet (100 mg total) by mouth 2 (two) times a day. 90 tablet 1 05/21/19 25 025 Discontin ued(Reord er) phentermine 15 MG capsuleIndicatio ns:Class 1 obesity due to excess calories without serious comorbidity with body mass index (BMI) of 30.0 to 30.9 in adult Take 1 capsule (15 mg total) by mouth every morning. 90 capsule 1 05/21/19 25 025 Discontin ued(Reord er) Active Problems Problem Noted Date Diagnosed Date Class 1 obesity due to exces s calories without serious comorbidity with body mass index (BMI) of 30.0 to 30.9 in adult 04/18/2018 Assessment & Plan (11/20/2024 8:58 AM EDT): Unfortunately she gained 5 pounds since her last visit despite the use of phentermine topiramate diet exercising. Despite numerous attempts to prescribe GLP-1 agonist her insurance is not covering it. Today she discussed with me bariatric surgery and I am willing to refer her if she decides she wants to go this route. Assessment & Plan (05/21/2024 8:43 AM EST): [...] obesity management. Prediabetes 04/18/2018 Assessment & Plan (11/20/2024 9:11 AM EDT): Hemoglobin A1c is stable at 5.9%. Continue diet exercise management. Assessment & Plan (05/21/2024 8:43 AM EST): [...] She has been off metformin now. Repeat vusli-nr-zfau today was 6.0% will prescribe Ozempic 0.25 [...] so we will continue the current management. Encounters Date Type Department Care Team Description 11/20/2024 8:50 AM EDT Office Visit [facility] [address] [place] [address] Griffin Corral DO Class 1 obesity due to excess calories without serious comorbidity with body mass index (BMI) of 30.0 to 30.9 in adult (Primary Dx); Prediabetes from Last 3 Months Family History Medical History Relation Comments No [...] Sign Reading Time Taken Comments Blood Pressure 130/90 11/20/2024 8:31 AM EDT Pulse 100 11/20/2024 8:31 AM EDT Temperature 36.6 C (97.8 F) 11/20/2024 8:31 AM EDT Respiratory Rate - - Oxygen Saturation 97% 11/20/2024 8:31 AM EDT Inhaled Oxygen Concentration - - Weight 95.1 kg (209 lb 9.6 oz) 11/20/2024 8:31 A M EDT Height 155 cm (5' 1.02 ) 11/20/2024 8:31 AM EDT Body Mass Index 39.57 11/20/2024 8:31 AM EDT Plan of Treatment Upcoming Encounters Date Type Department Care Team (Late st Contact Info) Description 05/21/2025 8:50 AM EST Office Visit [facility] [address] [place] [phone] Griffin Corral DO [address] [place] [address] Health Maintenance Due Date Last Done Comments DEPRESSION SCREENING 1988 SMOKING Hx and SMOKELESS TOBACCO SCREENING 1989 HEPATITIS C SCREENING 1994 HIV ONE-TIME SCREENING (18-6 5 YEARS) 1994 PAP SMEAR 1997 MAMMOGRAM 2016 COLOGUARD 2021 COLONOSCOPY 2021 COLORECTAL CANCER SCREENING 2021 FIT TEST 2021 FOBT 2021 SIGMOIDOSCOPY 2021 VIRTUAL COLONOSCOPY 2021 COVID-19 VACCINE (3 - 2024-2 5 season) 2023 06/06/2020, 05/02/2020 SCREENING FOR [...] Procedure Name Priority Date/Time Associated Diagnosis Comments POCT HEMOGLOBIN A1C Routine 11/20/2024 9 :11 AM EDT Prediabetes LIPID PANEL Routine 11/19/2023 8:57 AM EDT Prediabetes from Last 3 Months or Most Recently Relevant to Health Maintenance Results * (ABNORMAL) POCT Hemoglobin A1c (11/20/2024 9:11 AM EDT) Hemoglobin A1c 5.9(A) 4.2 - 5.6 % Other 11/20/2024 9:11 AM EDT Griffin Corral DO POINT OF CARE TEST ORDERABLES Fi nal Result * (ABNORMAL) Lipid panel (11/19/2023 8:57 AM EDT) HDL 57 mg/dL [facility] Comment: Interpretation <40 mg/dL: Low HDL cholesterol (major risk factor for CHD) Greater than or equal to 60 mg/dL: High HDL cholesterol ( negative risk factor for CHD) HDL - cholesterol is affected by a number of factors, e.g. smoking, excerise, hormones, sex and age. CHOLESTEROL 171 0 - 240 mg/dL [facility] TRIGLYCERIDES 70 30 - 160 mg/dL [facility] LDL 100 50 - 129 mg/dL [facility] Comment: LDL levels in terms of risk for coronary heart disease: <100 mg/dL: Optimal 100-129 mg/dL: Near or above optimal 130-159 mg/dL: Borderline high 160-189 mg/dL: High >190 mg/dL: Very High CARDIAC RISK RATIO 3.0(L) 3.3 - 4.4 C [facility] Blood 11/19/2023 8:57 AM EDT 11/19/2023 9:02 AM EDT us Griffin Corral DO LAB BLOOD ORDERABLES Final Resul t Performing Organization Address City/State/[facility] Co de Phone Number [facility] [address] [place] [address] from Last 3 Months or Most Recently Relevant to Health Maintenance Insurance BLUE CROSS OUT OF STATE PPO BLUE CROSS OUT OF STATE PPO BLUE CROSS OUT OF STATE PPO BLUE CROSS OUT OF STATE PPO BLUE CROSS OUT OF STATE PPO BLUE CROSS OUT OF STATE [place] [address] [place] [address] STATE PPO Care Teams Potato Picker Relationship Specialty Start Date End Date Jeffrey Denton MD [address] [place] [phone] PCP - General Internal Medicine 10/17/17 Additional Source Comments The information contained in this document represents components of the legal health record. It is not the complete legal health record.[facility]
[2024-11-20 10:52] LABS: Appearance Urine Clear; Glucose Urine UA Negative (Negative); PH 6.0 (5.0-9.0); Specific Gravity - Urine 1.025 (1.005-1.025); UMIC TRIGGER UACC YES
[2024-11-20 10:54] LABS: Hematocrit 46.7 % (37.0-47.0); Hemoglobin 15.1 g/dl (12.0-16.0); Imm Gran Abs Auto 0.01 X10*3/uL (0.00-0.03); Imm Gran Pct Auto 0.2 % (0.0-0.4); Lymphocytes Absolute Auto 1.3 X10*3/uL (1.2-4.9); Mean Corpuscular HGB Conc 32.3 g/dl (31.0-35.0); Mean Corpuscular Hemoglobin 28.8 pg (27.0-33.0); Mean Corpuscular Volume 89.0 fL (80.0-98.0); NRBC Abs Auto 0.000 X10*3/uL (0.0-0.012); NRBC Pct Auto 0.0 /100WBC (0.0-0.2); Platelet Count 231 X10*3/uL (160-400); Red Blood Count 5.25 X10*6/uL (4.20-5.50); White Blood Count 4.5 X10*3/uL (4.8-10.8)
[2024-11-20 11:10] LABS: UACC Culture Trigger YES
[2024-11-20 11:26] LABS: Alanine Aminotransferase 35 U/L (0-31); Albumin Level 4.3 g/dL (3.5-5.0); Alkaline Phosphatase 102 U/L (39-117); Anion Gap 10 (12-20); Aspartate Amino Transferase 35 U/L (5-31); Blood Urea Nitrogen 11 mg/dL (9-16); Calcium 10.0 mg/dL (8.4-10.2); Carbon Dioxide 30 mmol/L (22-29); Chloride 106 mmol/L (96-108); Cholesterol 189 mg/dL (<200); Estimated Glomerular Filt Rate > 60; HDL Cholesterol 52 mg/dL (>40); Potassium 4.9 mmol/L (3.3-5.1); Sodium 141 mmol/L (135-145); Total Protein 7.8 g/dL (6.5-8.0); Triglycerides 101 mg/dL (<150)
== END 2024-11-20 09:58 | disposition home or self-care (01) ==
LOC: HO.LAB 09:57
DX: Z00.00 Encounter for general adult medical examination without abnormal findings (principal); J45.21 Mild intermittent asthma with (acute) exacerbation; R05.9 Cough, unspecified; E11.69 Type 2 diabetes mellitus with other specified complication; E66.9 Obesity, unspecified; R10.13 Epigastric pain
CPT/HCPCS: 36415; 80053; 80061; 81001; 82306; 84443; 85025; 87086

== ENCOUNTER 2025-01-30 09:07 | Outpatient (AMB) | payer BC, SELFPAY ==
--- OUTSIDE RECORDS SUMMARY | 2025-01-30 10:03 | XMS_ITS | Clinical Summary ---
Author Organization [facility] Address [address] [address] Phone Care Team Providers Care Legal Clerk Name Role Phone Jeffrey Denton MD Primary Care Provider [phone] Allergies No known active allergies Medications BD [...] morning. 90 capsule 1 11/21/19 25 Active Active Problems Problem Noted Date [...] She has been off metformin now. Repeat iceue-br-lkym today was 6.0% will prescribe Ozempic 0.25 [...] AM EDT Office Visit [facility] [address] [place] [address] Griffin Corral DO Class 1 obesity due [...] 8:50 AM EST Office Visit [facility] [address] [place] [address] [phone] Griffin Corral DO [address] [place] [phone] Health Maintenance Due Date Last Done Comments DEPRESSION SCREENING 1988 SMOKING Hx and SMOKELESS TOBACCO SCREENING 1989 HEPATITIS C SCREENING 1994 HIV ONE-TIME SCREENING (18-6 5 YEARS) 1994 PAP SMEAR 1997 MAMMOGRAM 2016 COLOGUARD 2021 COLONOSCOPY 2021 COLORECTAL CANCER SCREENING 2021 FIT TEST 2021 FOBT 2021 SIGMOIDOSCOPY 2021 VIRTUAL COLONOSCOPY 2021 INFLUENZA VACCINE (#1) 2024 6, 12/03/2014 COVID-19 VACCINE (3 - 2024-2 6 season) 2024 06/06/2020, 05/02/2020 SCREENING FOR DIABETES 11/21/2027 5, 11/13/2022 Adult Td,Tdap Booster 08/28/2028 08/28/2018 LIPID [...] (11/19/2023 8:57 AM EDT) HDL 57 mg/dL [facility] Comment: Interpretation <40 mg/dL: Low HDL cholesterol (major risk factor for CHD) Greater than or equal to 60 mg/dL: High HDL cholesterol ( negative risk factor for CHD) HDL - cholesterol is affected by a number of factors, e.g. smoking, excerise, hormones, sex and age. CHOLESTEROL 171 0 - 240 mg/dL [facility] TRIGLYCERIDES 70 30 - 160 mg/dL [facility] LDL 100 50 - 129 mg/dL [facility] Comment: LDL levels in terms of risk for coronary heart disease: <100 mg/dL: Optimal 100-129 mg/dL: Near or above optimal 130-159 mg/dL: Borderline high 160-189 mg/dL: High >190 mg/dL: Very High CARDIAC RISK RATIO 3.0(L) 3.3 - 4.4 C [facility] Blood 11/19/2023 8:57 AM EDT 11/19/2023 9:02 AM EDT us Griffin Ellis DO LAB BLOOD ORDERABLES Final Resul t [facility] [address] [place] [address] from Last 3 Months or [...] PPO BLUE CROSS OUT OF STATE PPO Care Teams Legal Clerk Relationship Specialty Start Date End Date Jeffrey Denton MD [address] [place] [address] Dr Wallis [address] [place] [phone] PCP - General Internal Medicine 10/17/17 Additional Source Comments The information contained in this document represents components of the legal health record. It is not the complete legal health record.[facility]
--- NOTE | 2025-01-30 11:12 | MHC.OFFVISWM ---
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: Details: Start time: 11am, End time: 11.50am ?I spent 45 minutes speaking with the patient on the phone plus an additional 5 minutes reviewing and updating records for a total of 50 minutes HPI Comments Details: Previous weight loss efforts: Qsymia with Saxenda for 7 years: no weight loss Wakes up: 5am, Sleeps: 9pm Breakfast: 7am (egg or sandwich) Lunch: 12-1pm (Grilled chicken salad) Dinner: 6pm (chicken and potatoes) Snacks: 10am (yogurt) Exercise: none Beverages: Coffee: (2 cups/d with milk), Tea: none, Soda: Diet soda, Juice: none, ETOH: 2/wk (2 glasses Red wine x2/wk) PFSH Medical History (Updated 01/30/25 @ 11:17 by Beka Joyce MD) BMI 38.0-38.9,adult Epigastric pain Surgical History (Updated 12/28/24 @ 09:09 by Maddi Reyes CMA) Hx of breast reduction, elective History of esophagogastroduodenoscopy (EGD) Hx of colonoscopy History of partial hysterectomy Family History Father HTN (hypertension) Epileptic Social History Housing: Apartment Alcohol intake: current Alcohol intake frequency: a few times a month Alcohol type: wine Patient Tobacco Use Status: Former Tobacco user Tobacco use type: Cigarette e-Cigarette/Vaping Use: Never Used Second Hand Smoke Exposure: No service: No Current occupational status: employed Cognitive needs: No Hearing needs: No Vision needs: Yes (Contact lenses) Telehealth Telehealth Telehealth Platform: Telephone Location of provider rendering services: practice address Location of patient: address on file Patient Identification confirmed using: Name, : Yes Telehealth method: voice only Patient verbally consented to treatment: Yes Patient verbally consented to billing insurance company: Yes Patient informed of any privacy concerns related to visit: Yes Minutes spent on Phone/Video with Pt.: 50 Assessment & Plan Assessment & Plan (1) Obesity: Code(s): E66.9 - Obesity, unspecified Category: Medical Qualifiers: Body mass index: BMI 39.0-39.9 Obesity classification: adult class 2 (BMI 35 - 39.9) Obesity type: due to excess calories Serious obesity comorbidity presence: without serious comorbidity Qualified Code(s): E66.812 - Obesity, class 2; E66.09 - Other obesity due to excess calories; Z68.39 - Body mass index [BMI] 39.0-39.9, adult Plan: 1.? Plan for lap sleeve gastrectomy. If diaphragmatic or ventral hernias are present at time of surgery, these will be repaired laparoscopically as well. I emphasized the importance of close follow-up, adherence to instructions and good communication. The surgery does not replace the need to change your lifestlyle which is the cause of the obesity problem. The surgery provides the motivation to try again to change your lifestyle, it reduces the appetite and make the transition to a better lifestyle easier and doubles the amount of weight you would lose compared to doing the lifestyle change without the surgery. You will need to be on a liquid diet with protein shakes for 2 weeks before surgery to maximize weight loss and boost your nutritional status to recover better from surgery and also for the first two weeks after surgery to let the stomach heal before we introduce other foods. After the first 2 weeks we will introduce protein bars and soft foods like scrambled eggs, cottage cheese and yogurt and after the 6th week will introduce meat, fish and cooked vegetables in small amounts. Over time you should be able to eat everything in small amounts. Side effects like nausea, vomiting, heartburn or abdominal pain are not common in the practice unless you are not following in the practice. This operation requires lifetime commitment to following in our practice and communication with me. You will much less weight and experience side effects if you don?t communicate or not following in the practice. Complications are rare and in our practice is about 1/10 of the national average. However, you can develop bleeding that may require transfusion (hasn?t happened for year in the practice), you may from complications (we did not have any deaths in the practice) and infections. Infections are usually a result of breakdown in communication or not understanding or following directions correctly. They are difficult to treat, they can happen during the first 6 weeks, they may require to be in the hospital for weeks or even months, not being able to eat by mouth and you may have drains and surgeries to try and correct the issue. Other risks and complications include possible conversion to an open procedure, leaks, small bowel obstruction, blood clots, cardiac, or pulmonary complications, as detention complications such as ulcers, insufficient weight loss and vitamin deficiencies. 2.??Nutritional counseling. Start with one CELEBRATE REBUILD protein (buy online) shake (HALF scoop EACH in 8oz low fat unsweetened almond milk each) at 6am-8am, one protein bar (LP33.TVTE protein bars, [employer]) at 9am-11am, another CELEBRATE REBUILD protein shake (HALF scoop EACH in 8oz low fat unsweetened almond milk each) at 12pm-2pm, another Celebrate protein bar at 3pm-5pm, dinner at 6pm (8 forks of protein and 8 forks of salad/vegetables) AND another HALF protein bar after dinner at 8pm-9pm. So you do 2 protein shakes, 2.5 protein bars and one meal per day. Meal to include lean meat (beef, fish, pork, turkey, chicken), or dominican yogurt, or egg whites, or beans with a salad with olive oil and fruits (berries, pears, apples, kiwi). Avoid salt, breads, potatoes, rice, pasta, desserts. 3. Each shake would be drunk slowly, like coffee in a period of 2 hours. 4. Cut each bar in 4 pieces and eat each piece in 30min ?to make each bar last 2 hours. 5. I emphasized the importance of measuring accurately the food portion and measure it when serving the food in plate 6. The meal portions include 8 full-size forks of meat and 8 full-size forks of salad. You always eat the meat portion but you can replace up to 4 forks for salad/vegetables with rice, potatoes or pasta, or a fruit ?if you like. The less you do it the better weight loss will be. 7. One full-size fork is what it can be scooped on the fork without falling aside and not what can be bit with the fork. Use regular forks like those you find in a typical restaurant. 8.? Please buy the body composition scale we discussed and send me weight measurements as soon as possible and then once a week. Always include your diet and exercise plan. 9. Start walking outside daily, tracking calories with a goal of 300 calories per day, daily. Goal is to burn 2000 calories per week on exercise, which means either 300 calories daily, or 400 calories 5 days per week, or 500 calories 4 days per week, or 650 calories 3 days per week. 10. The best choice would be to purchase a stationary bike at home that can track calories. If you get one, please start stationary bike at a resistance level of 4.0 Increase level by 1.0 every 3 min to a max level of 10.0. Stay at this level for 3 min and then return to level 4.0 and repeat same steps until 300 calories are burned. Goal is to burn 2000 calories per week on exercise 11. Goal is to lose at least 1.5-2lbs per week 12. Goal to lose 10% of your weight before surgery, which is about 20lbs. Ultimate weight goal: 186lbs before surgery 13. Please follow the diet plan exactly without any change. If you don't like something about the plan or you feel hungry you need to communicate with me so I can help you revise the plan. You should not change the plan yourself 14. To be scheduled for EGD to assess the stomach's anatomy. The possibility of biopsies was discussed. Patient needs to avoid use of NSAIDs and aspirin for 1 week prior to EGD. You must be on liquids only the day before your endoscopy. Risks of perforation and bleeding was discussed with the patient. This will be an outpatient procedure with IV sedation. 15. As of tomorrow, please send me a picture of your meal plate after you measure it, but before you consume it. Orders: Orders Insulin Today E11.69 - Type 2 diabetes mellitus with other specified complication, E66.09 - Other obesity due to excess calories, E66.812 - Obesity, class 2, E66.9 - Obesity, unspecified, E78.5 - Hyperlipidemia, unspecified, Q21.0 - Ventricular septal defect, R73.03 - Prediabetes, Z68.39 - Body mass index [BMI] 39.0-39.9, adult Hemoglobin A1c Today - Type 2 diabetes mellitus with other specified complication, E66.09 - Other obesity due to excess calories, E66.812 - Obesity, class 2, E66.9 - Obesity, unspecified, E78.5 - Hyperlipidemia, unspecified, Q21.0 - Ventricular septal defect, R73.03 - Prediabetes, Z68.39 - Body mass index [BMI] 39.0-39.9, adult Vitamin B12 and Folate Today - Type 2 diabetes mellitus with other specified complication, E66.09 - Other obesity due to excess calories, E66.812 - Obesity, class 2, E66.9 - Obesity, unspecified, E78.5 - Hyperlipidemia, unspecified, Q21.0 - Ventricular septal defect, R73.03 - Prediabetes, Z68.39 - Body mass index [BMI] 39.0-39.9, adult Zinc Today - Type 2 diabetes mellitus with other specified complication, E66.09 - Other obesity due to excess calories, E66.812 - Obesity, class 2, E66.9 - Obesity, unspecified, E78.5 - Hyperlipidemia, unspecified, Q21.0 - Ventricular septal defect, R73.03 - Prediabetes, Z68.39 - Body mass index [BMI] 39.0-39.9, adult C Reactive Protein Today - Type 2 diabetes mellitus with other specified complication, E66.09 - Other obesity due to excess calories, E66.812 - Obesity, class 2, E66.9 - Obesity, unspecified, E78.5 - Hyperlipidemia, unspecified, Q21.0 - Ventricular septal defect, R73.03 - Prediabetes, Z68.39 - Body mass index [BMI] 39.0-39.9, adult TSH reflex Free T4 Today - Type 2 diabetes mellitus with other specified complication, E66.09 - Other obesity due to excess calories, E66.812 - Obesity, class 2, E66.9 - Obesity, unspecified, E78.5 - Hyperlipidemia, unspecified, Q21.0 - Ventricular septal defect, R73.03 - Prediabetes, Z68.39 - Body mass index [BMI] 39.0-39.9, adult Vitamin D 25-OH Total Today - Type 2 diabetes mellitus with other specified complication, E66.09 - Other obesity due to excess calories, E66.812 - Obesity, class 2, E66.9 - Obesity, unspecified, E78.5 - Hyperlipidemia, unspecified, Q21.0 - Ventricular septal defect, R73.03 - Prediabetes, Z68.39 - Body mass index [BMI] 39.0-39.9, adult XR chest 2V Today - Type 2 diabetes mellitus with other specified complication, E66.09 - Other obesity due to excess calories, E66.812 - Obesity, class 2, E66.9 - Obesity, unspecified, E78.5 - Hyperlipidemia, unspecified, Q21.0 - Ventricular septal defect, R73.03 - Prediabetes, Z68.39 - Body mass index [BMI] 39.0-39.9, adult ECG 12 lead EKG Today - Type 2 diabetes mellitus with other specified complication, E66.09 - Other obesity due to excess calories, E66.812 - Obesity, class 2, E66.9 - Obesity, unspecified, E78.5 - Hyperlipidemia, unspecified, Q21.0 - Ventricular septal defect, R73.03 - Prediabetes, Z68.39 - Body mass index [BMI] 39.0-39.9, adult H Pylori Breath Test Today - Type 2 diabetes mellitus with other specified complication, E66.09 - Other obesity due to excess calories, E66.812 - Obesity, class 2, E66.9 - Obesity, unspecified, E78.5 - Hyperlipidemia, unspecified, Q21.0 - Ventricular septal defect, R73.03 - Prediabetes, Z68.39 - Body mass index [BMI] 39.0-39.9, adult Complete Blood Count Auto Diff Today - Type 2 diabetes mellitus with other specified complication, E66.09 - Other obesity due to excess calories, E66.812 - Obesity, class 2, E66.9 - Obesity, unspecified, E78.5 - Hyperlipidemia, unspecified, Q21.0 - Ventricular septal defect, R73.03 - Prediabetes, Z68.39 - Body mass index [BMI] 39.0-39.9, adult Lipid Panel Today - Type 2 diabetes mellitus with other specified complication, E66.09 - Other obesity due to excess calories, E66.812 - Obesity, class 2, E66.9 - Obesity, unspecified, E78.5 - Hyperlipidemia, unspecified, Q21.0 - Ventricular septal defect, R73.03 - Prediabetes, Z68.39 - Body mass index [BMI] 39.0-39.9, adult IRON PROFILE Today - Type 2 diabetes mellitus with other specified complication, E66.09 - Other obesity due to excess calories, E66.812 - Obesity, class 2, E66.9 - Obesity, unspecified, E78.5 - Hyperlipidemia, unspecified, Q21.0 - Ventricular septal defect, R73.03 - Prediabetes, Z68.39 - Body mass index [BMI] 39.0-39.9, adult Comprehensive Met. Panel Today - Type 2 diabetes mellitus with other specified complication, E66.09 - Other obesity due to excess calories, E66.812 - Obesity, class 2, E66.9 - Obesity, unspecified, E78.5 - Hyperlipidemia, unspecified, Q21.0 - Ventricular septal defect, R73.03 - Prediabetes, Z68.39 - Body mass index [BMI] 39.0-39.9, adult Vitamin B1 Today - Type 2 diabetes mellitus with other specified complication, E66.09 - Other obesity due to excess calories, E66.812 - Obesity, class 2, E66.9 - Obesity, unspecified, E78.5 - Hyperlipidemia, unspecified, Q21.0 - Ventricular septal defect, R73.03 - Prediabetes, Z68.39 - Body mass index [BMI] 39.0-39.9, adult Vitamin A Today - Type 2 diabetes mellitus with other specified complication, E66.09 - Other obesity due to excess calories, E66.812 - Obesity, class 2, E66.9 - Obesity, unspecified, E78.5 - Hyperlipidemia, unspecified, Q21.0 - Ventricular septal defect, R73.03 - Prediabetes, Z68.39 - Body mass index [BMI] 39.0-39.9, adult Ferritin Today E11. - Type 2 diabetes mellitus with other specified complication, E66.09 - Other obesity due to excess calories, E66.812 - Obesity, class 2, E66.9 - Obesity, unspecified, E78.5 - Hyperlipidemia, unspecified, Q21.0 - Ventricular septal defect, R73.03 - Prediabetes, Z68.39 - Body mass index [BMI] 39.0-39.9, adult US abdomen comp w elastography Today - Type 2 diabetes mellitus with other specified complication, E66.09 - Other obesity due to excess calories, E66.812 - Obesity, class 2, E66.9 - Obesity, unspecified, E78.5 - Hyperlipidemia, unspecified, Q21.0 - Ventricular septal defect, R73.03 - Prediabetes, Z68.39 - Body mass index [BMI] 39.0-39.9, adult FL upper GI w air Today - Type 2 diabetes mellitus with other specified complication, E66.09 - Other obesity due to excess calories, E66.812 - Obesity, class 2, E66.9 - Obesity, unspecified, E78.5 - Hyperlipidemia, unspecified, Q21.0 - Ventricular septal defect, R73.03 - Prediabetes, Z68.39 - Body mass index [BMI] 39.0-39.9, adult Referrals Behavioral Health Referral . - Type 2 diabetes mellitus with other specified complication, E66.09 - Other obesity due to excess calories, E66.812 - Obesity, class 2, E66.9 - Obesity, unspecified, E78.5 - Hyperlipidemia, unspecified, Q21.0 - Ventricular septal defect, R73.03 - Prediabetes, Z68.39 - Body mass index [BMI] 39.0-39.9, adult Nutrition/Dietitian Referral E11. - Type 2 diabetes mellitus with other specified complication, E66.09 - Other obesity due to excess calories, E66.812 - Obesity, class 2, E66.9 - Obesity, unspecified, E78.5 - Hyperlipidemia, unspecified, Q21.0 - Ventricular septal defect, R73.03 - Prediabetes, Z68.39 - Body mass index [BMI] 39.0-39.9, adult
== END 2025-01-30 11:51 | disposition home or self-care (01) ==
LOC: HO.HBS 09:07
PROVIDERS: Visit Provider Surgery
DX: E66.9 Obesity, unspecified (principal); Z68.38 Body mass index [BMI] 38.0-38.9, adult
CPT/HCPCS: 99204

== ENCOUNTER 2025-02-13 08:48 | Outpatient (REF) | payer BC, SELFPAY ==
--- NOTE | ~2025-02-13 | XR_ITS ---
EXAMINATION: XR CHEST CLINICAL INFORMATION: E66.812 - Obesity, class 2 COMPARISON: June 30, 2022. TECHNIQUE: PA and lateral views FINDINGS: No consolidation, pleural effusion or pneumothorax. No hyperinflation. Cardiomediastinal silhouette size is normal. Multilevel thoracolumbar spondylosis. XR/XR chest 2V IMPRESSION: No acute airspace disease. Multilevel spondylosis. Electronically signed by: Abraham Pugh MD 02/13/2025 10:29 AM [facility]
--- NOTE | 2025-02-13 08:55 | ECG_ITS ---
Test Reason : E66.812 Blood Pressure : */* mmHG Vent. Rate : 79 BPM Atrial Rate : 79 BPM P-R Int : 132 ms QRS Dur : 74 ms QT Int : 366 ms P-R-T Axes : 39 24 27 degrees QTcB Int : 419 ms Normal sinus rhythm Normal ECG When compared with ECG of 06-Sep-2017 23:44, No significant change was found Referred By: Beka Joyce Electronically Signed By: Jose Bower
[2025-02-13 09:10] LABS: MANUAL DIFF FLAG NO
--- OUTSIDE RECORDS SUMMARY | 2025-02-13 09:17 | XMS_ITS | Clinical Summary ---
Author Organization [facility] Address [address] [address] Phone Care Team Providers Care Acoustical Carpenter Name Role Phone Jeffrey Denton MD Primary Care Provider [phone] Allergies No known active allergies Medications BD [...] She has been off metformin now. Repeat nyakc-xc-etjm today was 6.0% will prescribe Ozempic 0.25 [...] AM EDT Office Visit [facility] [address] [place] [address] Griffin Corral DO Class 1 obesity due [...] 8:50 AM EST Office Visit [facility] [address] [place] [address] [phone] Griffin Corral DO [address] [place] [address] Health Maintenance Due Date Last Done Comments [...] Other 11/20/2024 9:11 AM EDT Griffin Corral LAB POCT ENTER/EDIT ORDERABLES F inal Result * (ABNORMAL) Lipid panel (11/19/2023 8:57 AM EDT) HDL 57 mg/dL [facility] Comment: Interpretation <40 mg/dL: Low HDL cholesterol (major risk factor for CHD) Greater than or equal to 60 mg/dL: High HDL cholesterol ( negative risk factor for CHD) HDL - cholesterol is affected by a number of factors, e.g. smoking, excerise, hormones, sex and age. CHOLESTEROL 171 0 - 240 mg/dL [facility] TRIGLYCERIDES 70 30 - 160 mg/dL [facility] LDL 100 50 - 129 mg/dL [facility] Comment: LDL levels in terms of risk for coronary heart disease: <100 mg/dL: Optimal 100-129 mg/dL: Near or above optimal 130-159 mg/dL: Borderline high 160-189 mg/dL: High >190 mg/dL: Very High CARDIAC RISK RATIO 3.0(L) 3.3 - 4.4 C [facility] Blood 11/19/2023 8:57 AM EDT 11/19/2023 9:02 AM EDT us Griffin Corral DO LAB BLOOD BKR ORDERABLES Final R esult [facility] [address] [place] [address] from Last 3 Months or [...] CROSS OUT OF STATE PPO Care Teams Acoustical Carpenter Relationship Specialty Start Date End Date Jeffrey Denton MD [address] [place] [address] [place] [address] PCP - General Internal Medicine 10/17/17 Additional Source Comments The information contained in this document represents components of the legal health record. It is not the complete legal health record.[facility]
[2025-02-13 09:50] LABS: Hematocrit 48.2 % (37.0-47.0); Hemoglobin 15.9 g/dl (12.0-16.0); Imm Gran Abs Auto 0.01 X10*3/uL (0.00-0.03); Imm Gran Pct Auto 0.2 % (0.0-0.4); Lymphocytes Absolute Auto 1.2 X10*3/uL (1.2-4.9); Mean Corpuscular HGB Conc 33.0 g/dl (31.0-35.0); Mean Corpuscular Hemoglobin 28.8 pg (27.0-33.0); Mean Corpuscular Volume 87.3 fL (80.0-98.0); NRBC Abs Auto 0.000 X10*3/uL (0.0-0.012); NRBC Pct Auto 0.0 /100WBC (0.0-0.2); Platelet Count 229 X10*3/uL (160-400); Red Blood Count 5.52 X10*6/uL (4.20-5.50); White Blood Count 4.2 X10*3/uL (4.8-10.8)
[2025-02-13 10:22] LABS: Alanine Aminotransferase 35 U/L (0-31); Albumin Level 4.6 g/dL (3.5-5.0); Alkaline Phosphatase 109 U/L (39-117); Anion Gap 9 (12-20); Aspartate Amino Transferase 32 U/L (5-31); Blood Urea Nitrogen 11 mg/dL (9-16); Calcium 9.7 mg/dL (8.4-10.2); Carbon Dioxide 28 mmol/L (22-29); Chloride 106 mmol/L (96-108); Cholesterol 203 mg/dL (<200); Estimated Glomerular Filt Rate > 60; HDL Cholesterol 53 mg/dL (>40); Iron 57 mcg/dL (30-160); Percent Iron Saturation 17 % (15-50); Potassium 4.4 mmol/L (3.3-5.1); Sodium 139 mmol/L (135-145); Total Iron Binding Capacity 330 mcg/dL (228-428); Total Protein 8.3 g/dL (6.5-8.0); Triglycerides 80 mg/dL (<150); Unsaturated Iron Binding 273 ug/dL
[2025-02-13 10:51] LABS: Ferritin 154 ng/mL (10-250)
[2025-02-13 11:14] LABS: Folate 7.8 ng/mL (> or = 4.0); Vitamin B12 496 pg/mL (200-900)
== END 2025-02-13 08:49 | disposition home or self-care (01) ==
LOC: HO.XRAY 08:48
PROVIDERS: Visit Provider Surgery
DX: E11.69 Type 2 diabetes mellitus with other specified complication (principal); E66.812 Obesity, class 2; E66.9 Obesity, unspecified; E78.5 Hyperlipidemia, unspecified; Q21.0 Ventricular septal defect; Z68.39 Body mass index [BMI] 39.0-39.9, adult
CPT/HCPCS: 36415; 71046; 80053; 80061; 82306; 82607; 82728; 82746; 83036; 83525; 83540; 84425; 84443; 84590; 84630; 85025; 86140; 93005

== ENCOUNTER → 2025-02-13 08:55 | Outpatient (BNV) | payer BC, SELFPAY | PROVIDERS: Visit Provider Internal Medicine Cardiovascular Disease | DX: E66.812 Obesity, class 2 (principal) | CPT/HCPCS: 93010 ==

== ENCOUNTER → 2025-02-13 09:10 | Outpatient (BNV) | payer BC, SELFPAY | PROVIDERS: Visit Provider Radiology Diagnostic Radiology | DX: E66.812 Obesity, class 2 (principal); Z68.39 Body mass index [BMI] 39.0-39.9, adult; M47.815 Spondylosis without myelopathy or radiculopathy, thoracolumbar region | CPT/HCPCS: 71046 ==

== ENCOUNTER 2025-02-21 09:59 | Outpatient (AMB) | payer BC, SELFPAY ==
--- NOTE | 2025-02-21 10:05 | MHC.WMTHER ---
Intake Intake Visit Reasons: OV BH Intake Allergies No Known Allergies Allergy (Verified 01/30/25 11:12) PFSH Medical History (Updated 01/30/25 @ 11:17 by Beka Joyce MD) BMI 38.0-38.9,adult Epigastric pain Surgical History (Updated 12/28/24 @ 09:09 by Maddi Reyes CMA) Hx of breast reduction, elective History of esophagogastroduodenoscopy (EGD) Hx of colonoscopy History of partial hysterectomy Family History Father HTN (hypertension) Epileptic Social History Housing: Apartment Alcohol intake: current Alcohol intake frequency: a few times a month Alcohol type: wine Patient Tobacco Use Status: Former Tobacco user Tobacco use type: Cigarette e-Cigarette/Vaping Use: Never Used Second Hand Smoke Exposure: No service: No Current occupational status: employed Cognitive needs: No Hearing needs: No Vision needs: Yes (Contact lenses) Behavioral Health Assessment Weight Management Therapy Therapy Notes Details The patient is a 49-year-old female presenting for a behavioral health assessment as part of her preoperative evaluation for a surgical weight loss program. She was initially referred by her child center assistant. Presenting Concerns Referral Source WMP-Provider Reason for referral Completion of behavioral health assessment as part of process for weight-loss surgery. Precipitating Event Obesity. Living Situation Current Living Situation Rent At risk of losing current housing? No Satisfied with current living situation? Yes Comments PT lives with her 2 sons. Food/Weight/Diet Expectations of change PT started the program in December at 206, and the initial goal is to lose 10% of her weight before surgery, which is about 20lbs. Ultimate weight goal: 186lbs before surgery. And as of 02/11/2025 her weight was 197Lbs Patient wants to be at least 145Lbs, but also wants to prevent major heart complications and reverse pre-diabetes diagnosis. PT is implementing the following: Current meal plan: 2 protein shakes, 2.5 protein bars and one meal per day. Exercise plan: scale: yes Communication with provider: Mondays. History/Relationship with food The patient reports she was raised to always finish her plate, regardless of fullness. Following her father?s passing in 2020, she began using food for comfort during her grief. As a busy mother, her eating habits are sometimes driven by convenience and influenced by [place], cuisine. She finds it easy to follow the current plan and is doing well so far. Example of meals before starting the program: Breakfast: 7am (egg or sandwich) Lunch: 12-1pm (Grilled chicken salad) Dinner: 6pm (chicken and potatoes) Snacks: 10am (yogurt) Exercise: none Beverages: Coffee: (2 cups/d with milk), Tea: none, Soda: Diet soda, Juice: none, ETOH: 2/wk (2 glasses Red wine x2/wk) History/Relationship with weight PT reports she was at a healthy weight in childhood. Was 93Lbs in HS, and 127Lbs after her first . In the last 10 years, the patient's Lowest weight was around 170Lbs and highest 211Lbs History/Relationship with dieting walking and self-diets. Qsymia with Saxenda for 7 years: 45Lbs total. Binge Eating Do you frequently eat large amounts of food in short periods of time, not feeling physically hungry? Yes Do you feel out of control when you eat a large amount of food in a short period of time? No Do you eat large amounts of food rapidly and typically alone? No Night Eating Do you wake up at least once during the night to eat? No If you wake up in the night, do you find that it is necessary to eat something in order to fall back asleep? No Do you have little or no appetite in the morning and feel very hungry in the evening, often overeating between dinner and when you go to bed? No Social History Family history and relationship PT is single, has 2 children, PT has 4 children, 2 girls and 2 boys and she has 8 grandkids. Her daughters live apart they have their own family, and the 2 youngest boys live with her, they are 30 and 25. PT has 7 siblings only talks to 1. Father 4 years ago, raised by her dad, she doesn't know her bio-mother. 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 He attends a day program and Pt has guardianship for him. Developmental history and status None. Currently WNL. Social support Daughters, son. couple close friends and cousins. Community support PCP. Christian/Spirituality None. Cultural/Ethnic information , dad from [place], PT was born here. Legal Involvement and History Current or historical involvement with the legal system? None reported Education Highest grade completed 11th - GED. Preferred learning style Auditory, Verbal, Written, Learn by doing and Visual Currently enrolled in educational program? No Interested in further educational program? No Educational Interests/Skills Would like to be international accountant. 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 No Meaningful activities traveling, audiobooks, listen to music, hiking. Social activities Financial Situation Describe current financial situation Comfortable and Occasional struggle Financial assistance? None Service Service? No Mental Health and Addiction Treatment Current/Past substance abuse? No Comments Alcohol: on weekends, tue and Tuesday only. Drinks 2 glasses of wine Cigarettes/Tobacco: None. Cannabis/Edibles: None Current/Past addictive behavior concerns? No Psychiatric history The patient reports she has never participated in counseling and denies any history of mental health crises or inpatient psychiatric treatment. She has no past or current concerns regarding suicidal ideation, suicide attempts, self-harm, or harm to others. Medical and Physical Health Summary Additional Medical History not covered in history None aditional Sexual History concerns None reported. Physical exam in the last year? Yes Pain Screening Current pain? No Pain in the last few months? No Medications Is the patient compliant with medications? Yes Does the patient have Frias Guardian in place? Not applicable Does the patient use complimentary health approaches? No Trauma/Abuse History History of trauma? No Questionnaires PHQ-9 Over the last 2 weeks, how often have you been bothered by any of the following problems? 1. Little interest or pleasure in doing things: several days 2. Feeling down, depressed, or hopeless: several days 3. Trouble falling or staying asleep, or sleeping too much: several days 4. Feeling tired or having little energy: several days 5. Poor appetite or overeating: not at all 6. Feeling bad about yourself - or that you are a failure or have let yourself or your family down: not at all 7. Trouble concentrating on things, such as reading the newspaper or watching television: not at all 8. Moving or speaking so slowly that other people could have noticed. Or the opposite - being so fidgety or restless that you have been moving around a lot more than usual: not at all 9. Thoughts that you would be better off or of hurting yourself in some way: not at all Total score: 4 Depression Screening Interpretation: Negative Depression Screening Done: Yes 54194 - PHQ-9 Billing: Yes Source: Developed by Drs. Manuel Williamson, Ila Holly, Kulwinder Crisostomo and colleagues, with an educational lakesha from [employer]. Assessment & Plan Assessment & Plan (1) Adjustment disorder: Code(s): F43.20 - Adjustment disorder, unspecified Qualifiers: Adjustment disorder type: unspecified type Qualified Code(s): F43.20 - Adjustment disorder, unspecified (2) Pre-bariatric surgery psychological evaluation: Code(s): Z71.89 - Other specified counseling Plan Following a comprehensive behavioral health assessment?including review of the Binge Eating Scale, PHQ-9, mental status evaluation, and patient self-report?there are currently no behavioral health contraindications to proceeding with bariatric surgery. The patient demonstrates appropriate insight, motivation, and psychological readiness for the procedure. No active psychiatric symptoms or maladaptive eating behaviors were identified that would impede surgical outcomes at this time. The patient is cleared from a behavioral health perspective to proceed with bariatric surgery and documentation can be submitted for insurance approval as indicated. PT will return for a follow-up behavioral health visit 1?4 weeks postoperatively to monitor psychological adjustment, reinforce coping strategies, and screen for any emerging concerns such as mood changes, adjustment difficulties, or disordered eating patterns. Additional behavioral health support will be provided as needed based on postoperative assessment. Next jerardo: 1-4 weeks PO. [place] [address] Psy Diag Eval Patient Type New Diagnoses Adjustment disorder, unspecified type F43.20 Adjustment disorder type: unspecified type Pre-bariatric surgery psychological evaluation Z71.89 Additional Codes PHQ-9 - 83865 - PHQ-9 Billing: Yes ([id number]) Time Spent (min) 75
--- OUTSIDE RECORDS SUMMARY | 2025-02-21 11:56 | XMS_ITS | Clinical Summary ---
Author Organization [facility] Address [address] [address] Phone Care Team Providers Care Marriage And Family Therapist Name Role Phone Jeffrey Denton MD Primary Care Provider [phone] Allergies No known active allergies Medications BD [...] She has been off metformin now. Repeat [id number] today was 6.0% will prescribe Ozempic 0.25 [...] Upcoming Encounters Date Type Department Care Team ([facility] st Contact Info) Description 05/21/2025 8:50 AM EST Office Visit [facility] [address] [place] [id number] Griffin Corral DO [address] [place] [address] [email or web address] Health Maintenance Due Date Last Done Comments [...] on patient's age to complete this topic IPV VACCINES Aged Out No longer eligi ble [...] (11/19/2023 8:57 AM EDT) HDL 57 mg/dL [facility] Comment: Interpretation <40 mg/dL: Low HDL cholesterol (major risk factor for CHD) Greater than or equal to 60 mg/dL: High HDL cholesterol ( negative risk factor for CHD) HDL - cholesterol is affected by a number of factors, e.g. smoking, excerise, hormones, sex and age. CHOLESTEROL 171 0 - 240 mg/dL [facility] TRIGLYCERIDES 70 30 - 160 mg/dL [facility] LDL 100 50 - 129 mg/dL [facility] Comment: LDL levels in terms of risk for coronary heart disease: <100 mg/dL: Optimal 100-129 mg/dL: Near or above optimal 130-159 mg/dL: Borderline high 160-189 mg/dL: High >190 mg/dL: Very High CARDIAC RISK RATIO 3.0(L) 3.3 - 4.4 [facility] Blood 11/19/2023 8:57 AM EDT 11/19/2023 9:02 AM EDT Griffin Corral DO LAB BLOOD BKR ORDERABLES Final R esult [address] [address] from Last 3 Months or Most Recently Relevant to Health Maintenance [place] [address] [place] [address] PPO BLUE CROSS OUT OF STATE PPO BLUE CROSS OUT OF STATE PPO BLUE [place]OSS OUT OF STATE PPO BLUE [place]OSS OUT OF STATE PPO BLUE [place]OSS OUT OF STATE PPO BLUE CROSS OUT OF STATE PPO OUT OF STATE PPO [place] OUT OF STATE PPO Care Teams Marriage And Family Therapist Relationship Specialty Start Date End Date Jeffrey Denton MD [address] [place] [address] [place] [address] PCP - General Internal Medicine 10/17/17 Additional Source Comments The information contained in this document represents components of the legal health record. It is not the complete legal health record.[facility]
== END 2025-02-21 11:19 | disposition home or self-care (01) ==
LOC: HO.HBST 09:59
PROVIDERS: Visit Provider Counselor Mental Health
DX: F43.20 Adjustment disorder, unspecified (principal); Z71.89 Other specified counseling
CPT/HCPCS: 90791

== ENCOUNTER 2025-03-14 06:03 | Day surgery (SDC) | payer BC, SELFPAY ==
--- OUTSIDE RECORDS SUMMARY | 2025-02-14 08:01 | XMS_ITS | Clinical Summary ---
Author Organization [facility] Address [address] [address] Phone Care Team Providers Care Chimney Supervisor Brick Name Role Phone Jeffrey Denton MD Primary Care Provider [phone] Allergies No known active allergies Medications BD [...] She has been off metformin now. Repeat uzkqm-cs-qzqu today was 6.0% will prescribe Ozempic 0.25 [...] AM EDT Office Visit [facility] [address] [place] [address] Griffin Corral DO Class 1 obesity due [...] 8:50 AM EST Office Visit [facility] [address] [place] [address] [phone] Griffin Corral DO [address] [place] [address] Health Maintenance Due Date Last Done Comments [...] (11/19/2023 8:57 AM EDT) HDL 57 mg/dL [facility] Comment: Interpretation <40 mg/dL: Low HDL cholesterol (major risk factor for CHD) Greater than or equal to 60 mg/dL: High HDL cholesterol ( negative risk factor for CHD) HDL - cholesterol is affected by a number of factors, e.g. smoking, excerise, hormones, sex and age. CHOLESTEROL 171 0 - 240 mg/dL [facility] TRIGLYCERIDES 70 30 - 160 mg/dL [facility] LDL 100 50 - 129 mg/dL [facility] Comment: LDL levels in terms of risk for coronary heart disease: <100 mg/dL: Optimal 100-129 mg/dL: Near or above optimal 130-159 mg/dL: Borderline high 160-189 mg/dL: High >190 mg/dL: Very High CARDIAC RISK RATIO 3.0(L) 3.3 - 4.4 C [facility] Blood 11/19/2023 8:57 AM EDT 11/19/2023 9:02 AM EDT us Griffin Corral DO LAB BLOOD BKR ORDERABLES Final R esult [facility] [address] [place] [address] from Last 3 Months or [...] CROSS OUT OF STATE PPO Care Teams Chimney Supervisor Brick Relationship Specialty Start Date End Date Jeffrey Denton MD [address] [place] [address] [place] [address] PCP - General Internal Medicine 10/17/17 Additional Source Comments The information contained in this document represents components of the legal health record. It is not the complete legal health record.[facility]
--- NOTE | 2025-03-11 12:37 | P.CONAN_ITS ---
Documented by User: Glenys Cornejo NP 03/11/25 12:42 HPI - Anesthesia Eval Consult details Narrative: 49yo F for Upper Endoscopy [place] [facility] [place]. Stable for routine 3 year f/u [facility] Active Problems Active Problems: All Active Problems BMI 38.0-38.9,adult (Acute) HLD (hyperlipidemia) (Acute) Vitamin D deficiency (Acute) Elevated liver enzymes (Acute) Seasonal allergies (Acute) Prediabetes (Acute) Asthma exacerbation (Acute) Lower respiratory infection (e.g., bronchitis, pneumonia, pneumonitis, pulmonitis) (Acute) Asthma (Acute) Cough (Acute) VSD (ventricular septal defect) (Acute) Type 2 diabetes mellitus with obesity (Acute) Physical exam (Acute) Obesity (Acute) Cough (Acute) Cellulitis (Acute) Epigastric pain (Acute) Past Medical History Medical History BMI 38.0-38.9,adult Epigastric pain Family History Family History Father HTN (hypertension) Epileptic Surgical History Surgical History History of hemorrhoidectomy Hx of breast reduction, elective History of esophagogastroduodenoscopy (EGD) Hx of colonoscopy History of partial hysterectomy Social History Social History Housing: Apartment Alcohol intake: current Alcohol intake frequency: a few times a month Alcohol type: wine Patient Tobacco Use Status: Former Tobacco user Tobacco use type: Cigarette e-Cigarette/Vaping Use: Never Used Second Hand Smoke Exposure: No Use of substances other than those prescribed or required for medical reasons: No Are you DNR?: No Advance Directives: No Advance Directives Information Provided: Yes Patient : No service: No Current occupational status: employed Cognitive needs: No Hearing needs: No Vision needs: Yes (Contact lenses) Meds Allergies Allergy/AdvReac Type Severity Reaction Status Date / Time oxycodone Allergy Itching Verified 03/14/25 06:24 Home Medications ?Medication ?Instructions ?Recorded ?Confirmed ?Last Taken ?Type albuterol sulfate 90 mcg/actuation 2 puff inhalation Q 6H PRN sob 01/30/25 03/14/25 Unknown History aerosol inhaler Exam Pertinent Lab Results Pertinent Lab Results: Laboratory Tests 02/13/25 09:09 WBC 4.2 L Hgb 15.9 Hct 48.2 H Plt Count 229 Sodium 139 Potassium 4.4 Chloride 106 Carbon Dioxide 28 BUN 11 Creatinine 0.75 Narrative Narrative: EKG 02/2025 Vent. Rate : 79 BPM Atrial Rate : 79 BPM P-R Int : 132 ms QRS Dur : 74 ms QT Int : 366 ms P-R-T Axes : 39 24 27 degrees QTcB Int : 419 ms Normal sinus rhythm Normal ECG When compared with ECG of 06-Sep-2017 23:44, No significant change was found ECHO 09/2024 Conclusions: - The left ventricular systolic function is normal. The calculated ejection fraction is 64% by biplane method. - There is evidence of a small membranous ventricular septal defect. - No obvious valvular pathology seen on this study. Assessment and Plan Assessment Anesthesia Assessment: Chart Reviewed Documented by User: Britney Shea MD 03/14/25 07:43 [facility] Past Medical History Medical History BMI 38.0-38.9,adult Epigastric pain Family History Family History Father HTN (hypertension) Epileptic Family history of problems with anesthesia: No Surgical History Surgical History History of hemorrhoidectomy Hx of breast reduction, elective History of esophagogastroduodenoscopy (EGD) Hx of colonoscopy History of partial hysterectomy History of Problems with Anesthesia: No Social History Social History Housing: Apartment Alcohol intake: current Alcohol intake frequency: a few times a month Alcohol type: wine Patient Tobacco Use Status: Former Tobacco user Tobacco use type: Cigarette e-Cigarette/Vaping Use: Never Used Second Hand Smoke Exposure: No Use of substances other than those prescribed or required for medical reasons: No Are you DNR?: No Advance Directives: No Advance Directives Information Provided: Yes Patient : No service: No Current occupational status: employed Cognitive needs: No Hearing needs: No Vision needs: Yes (Contact lenses) Meds Allergies Allergy/AdvReac Type Severity Reaction Status Date / Time oxycodone Allergy Itching Verified 03/14/25 06:24 Home Medications ?Medication ?Instructions ?Recorded ?Confirmed ?Last Taken ?Type albuterol sulfate 90 mcg/actuation 2 puff inhalation Q 6H PRN sob 01/30/25 03/14/25 Unknown History aerosol inhaler Exam Airway Mallampati Class: II TM Dist: >3cm Neck ROM: Full Heart: rrr Lungs: cta Assessment and Plan Assessment Anesthesia Assessment: Anesthesia Plan Discussed Final Anesthetic Review Family History of Problems with Anesthesia: No History of Problems with Anesthesia: No NPO: Yes ASA Class: III Final Preanesthetic Review: No Changes in Pt Med Stat, Meds/Allgs Chart Reviewed, Consent Obtained/Reviewed and Anes Risks/Benef Reviewed Patient Risk: Intermediate Procedure Risk: Low Anesthetic Plan Anesthetic Plan: MAC: and Agree w/ Assess. and Plan Disposition: Standard PACU
[2025-03-14 06:14] VITALS: BMI 38.4
[2025-03-14 06:24] VITALS: BP 138/92; PULSE 97; RESP 16; TEMP 36; O2SAT 93
[2025-03-14] MEDS: Lactated Ringers 1,000 ML 80 ML IVCONT (06:39)
--- NOTE | 2025-03-14 07:24 | P.BOP_ITS ---
Brief Operative Note Date of Service: 03/14/25 Pre-op diagnosis: Obesity Post-op diagnosis: same Procedure: PROCEDURE DATE: 03/14/2025 PREOPERATIVE DIAGNOSIS: Obesity POSTOPERATIVE DIAGNOSIS: ?Same as above. Moderate size diaphragmatic hernia PROCEDURE: [id number]-lakdjl-qdafmxrflmcd with biopsies Surgeon: ?Andre Joyce M.D.. Ph.D. Screw Remover: None ? Anesthesia: IV sedation Estimated blood loss: ?Minimal FINDINGS AND PROCEDURE: ? OPERATIVE INDICATIONS: ?The patient is a 49 year old female known to me who is interested in bariatric surgery. Based on this information I recommended an upper endoscopy to evaluate the patient's symptoms. Risks and complications of the surgery were discussed with the patient in advance particularly the possibility of perforation or bleeding that may require surgical intervention. The patient understood the risks and was in agreement with the plan. ? PROCEDURE: After informed consent was obtained by the patient, the patient was ?transferred to the Operating Room and was placed in the supine position.? After successful induction of IV sedation, a mouth block was inserted and the patient was placed in the left lateral decubitus position. An upper endoscopy was performed next, the oropharynx and esophagus appeared within the normal limits. There was a 3-4cm reducible hiatal hernia. The z-line was smooth. Two biopsies were obtained from the distal esophagus 2-3 cm proximal to the GE junction and two additional biopsies from the GE junction. The stomach was entered and it appeared to be of normal size. There was no gastritis. There was no stricture or ulcer. A biopsy was obtained from the gastric fundus and the antrum. No significant bleeding was noted from any of the biopsy sites. Retroflexion of the scope confirmed the presence of the diaphragmatic hernia with an obvious defect at the crura. The scope was then advanced into the duodenum which appeared to be normal as well. At that point the duodenum ?and the stomach were decompressed and the scope was withdrawn from the patient's mouth. The patient extubated and was transferred in stable condition to the Recovery Room for further care. I was present and performed all steps of the procedure. There were no residents to assist with this case. Andre Joyce M.D., Ph.D. Surgeon: Beka Joyce MD Anesthesia: MAC Was an Screw Remover used for this Procedure?: No Estimated blood loss (mL): 0 IV fluids (mL): 400 Urine output (mL): 0 (No Nuñez to record output) Pathology: other (1) antrum x1, 2) fundus x1, 3) GE junction x2, 4) distal esophagus x2) Condition: stable Disposition: PACU
--- NOTE | 2025-03-14 07:24 | MHC.SHP ---
Pre-Procedural Eval Section A - 24 Hr Update-Section A only Date of Service: 03/14/25 The patient is an INPATIENT: No The patient has been examined within 24 hours of the surgical procedure. The History & Physical has been completed within 30 days and I have reviewed it.: Yes Section B - Complete if H&P > 30 days Chief Complaint: Obesity, unspecified Relevant Family History (Specify if Yes): No Relevant Social History: None Present Medications: None Medical History: No relevant PMH History of Previous Operations: No relevant previous surgery Allergies: Allergies Allergy/AdvReac Type Severity Reaction Status Date / Time oxycodone Allergy Itching Verified 03/14/25 06:24 Review of Systems Sugical H&P ROS: Negative: Constitution, Cardiovascular, Respiratory, Neurological, Psychiatric, Hem-Onc, Allergic/Immunologic, Gastrointestinal, Genitourinary, Musculoskeletal, Integumentary, Endocrine and Eyes/Ears/Nose/Throat Exam Surgical H&P Exam: Normal: HEENT, Normal: Heart, Normal: Lungs, Normal: Extremities, Normal: Abdomen, Normal: Skin and Normal: Neurological Plan Diagnosis/Plan: Unchanged (EGD to assess the stomach's anatomy. Risks of bleeding and perforation were discussed with the patient and she is in agreement with the plan.) I have reviewed the history and physical and performed a pertinent physical examination on my patient. No changes have occurred unless specified. Time Spent With Patient Time: Total time managing care of this patient today ____ minutes.
[2025-03-14 07:50] VITALS: BP 147/92; PULSE 115; RESP 16; TEMP 36.2; O2SAT 94
[2025-03-14 08:06] VITALS: BP 125/85; PULSE 93; RESP 16; TEMP 36.1; O2SAT 95
== END 2025-03-14 08:33 | disposition home or self-care (01) ==
PROVIDERS: Visit Provider Surgery
PROC: 0DJ08ZZ Inspection of Upper Intestinal Tract, Via Natural or Artificial Opening Endoscopic (ICD-10-PCS; CPT 43235; principal; 2025-03-14 07:30)
DX: E11.69 Type 2 diabetes mellitus with other specified complication (principal); E66.09 Other obesity due to excess calories; Z68.39 Body mass index [BMI] 39.0-39.9, adult; K44.9 Diaphragmatic hernia without obstruction or gangrene; R10.13 Epigastric pain; K21.9 Gastro-esophageal reflux disease without esophagitis; E78.5 Hyperlipidemia, unspecified; J45.909 Unspecified asthma, uncomplicated; Q21.0 Ventricular septal defect; Z79.899 Other long term (current) drug therapy; Z88.5 Allergy status to narcotic agent; Z90.711 Acquired absence of uterus with remaining cervical stump; Z98.890 Other specified postprocedural states; Z87.891 Personal history of nicotine dependence
CPT/HCPCS: 43239; 88305; 88313; 88342; J2003; J2704; J3010

== ENCOUNTER → 2025-03-14 06:03 | Outpatient (BNV) | payer BC, SELFPAY | PROVIDERS: Visit Provider Surgery | DX: K21.9 Gastro-esophageal reflux disease without esophagitis (principal); E66.812 Obesity, class 2; Z68.38 Body mass index [BMI] 38.0-38.9, adult | CPT/HCPCS: 43239 ==